=== PATIENT | female | born 1970 | race Caucasian/White ===

== ENCOUNTER 2017-01-07 08:45 | Outpatient (CLI) | payer OTHER ==
[~2017-01-07] VITALS: Ht 157.5 cm; Wt 103.4 kg
[~2017-01-07 08:45] MED LIST: ACET-2650 PO; GLUC1TAB60 PO; GLUC500C2; MELO15TA14 PO; MULT-35 PO
== END 2017-01-07 08:50 ==
LOC: PREOP 08:45
PROVIDERS: ATTEND Orthopaedic Surgery
DX: Z01.818 Encounter for other preprocedural examination (principal); M23.8X1 Other internal derangements of right knee

== ENCOUNTER 2017-01-12 07:30 | Day surgery (SDC) | payer OTHER ==
--- NOTE | 2017-01-04 13:42 | HISTORY AND PHYSICAL ---
DATE OF SERVICE: 01/12/2017 HISTORY OF PRESENT ILLNESS: The patient is a 46-year-old female with progressively worsening right knee pain, catching, locking and swelling. She has undergone treatment with injections, anti-inflammatories and activity modifications without relief of her symptoms. Due to functional impairment and failure to improve with conservative measures, the patient has elected to proceed with surgical intervention. REVIEW OF SYSTEMS: CONSTITUTIONAL: No chest pain, no shortness of breath, no dysuria. PAST MEDICAL HISTORY: Denies. PAST SURGICAL HISTORY: Left knee arthroscopy. SOCIAL HISTORY: The patient denies alcohol use. She drinks alcohol socially. FAMILY HISTORY: Significant for Alzheimer's ischemic heart disease, diabetes. PRIMARY CARE PROVIDER: Dr. Gibson MEDICATIONS: Mobic. ALLERGIES: No known drug allergies. PHYSICAL EXAMINATION: GENERAL: The patient is well developed, well nourished, no acute distress. HEENT: Normocephalic, atraumatic. Pupils were equal, round, reactive to light. Oropharynx is clear. NECK: Supple. No lymphadenopathy. LUNGS: Clear to auscultation bilaterally. HEART: Regular rate and rhythm. ABDOMEN: Soft, nontender, nondistended. EXTREMITIES: The right knee demonstrates a moderate effusion. She is tender along her medial femoral condyle and has pain medially with Von's. There is crepitus with knee range of motion. No varus valgus laxity, negative anterior and posterior drawer. Range of motion, 0/0/130. The patient ambulates with an antalgic gait. 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 PLAN: Right knee arthroscopy with partial medial meniscectomy and chondroplasty. The risks and benefits, options recovery have been discussed at length with the patient. She understands and wishes to proceed. Job ID: [id number] DocumentID: [id number] Dictated Date: 01/04/2017 13:02:15 Test Tech Date: 01/04/2017 13:42:05 Dictated By: RONNI PIZANO MD
--- NOTE | 2017-01-04 14:49 | HISTORY AND PHYSICAL ---
DATE OF SERVICE: This is for outpatient surgery on 01/12/17 for right knee arthroscopy. HISTORY OF PRESENT ILLNESS: The patient is a 46-year-old female with progressively worsening right knee pain, catching, locking and swelling. She has undergone treatment with injections, anti-inflammatories and at home exercise program without relief. She underwent injection which provided 2 weeks of good relief, but her symptoms recurred. She reports functional progressive impairment and due to this and failure to improve with conservative measures, the patient has elected to proceed with surgical intervention. REVIEW OF SYSTEMS: CONSTITUTIONAL: No chest pain, no shortness of breath, no dysuria. PAST MEDICAL HISTORY: Denies. PAST SURGICAL HISTORY: Left knee arthroscopy. SOCIAL HISTORY: The patient denies alcohol and tobacco use. FAMILY HISTORY: Significant for Alzheimer disease, diabetes, ischemic heart disease. PRIMARY CARE PROVIDER: Dr. Gibson MEDICATIONS: Mobic. ALLERGIES: No known drug allergies. PHYSICAL EXAMINATION: GENERAL: The patient is well developed, well nourished, no acute distress. HEENT: Normocephalic, atraumatic. Pupils were equal, round, reactive to light. Oropharynx is clear. NECK: Supple, no lymphadenopathy. LUNGS: Clear to auscultation bilaterally. HEART: Regular rate and rhythm. ABDOMEN: Soft, nontender, nondistended. EXTREMITIES: The right lower extremity demonstrates a moderate effusion. She has patellofemoral crepitus and pain with patella loading. She is tender along the medial femoral condyle and has pain medially with Von's. Range of motion, 0/0/130. She is ligamentously stable in all planes. IMPRESSION: Right knee medial meniscal tear with chondromalacia. PLAN: Right knee arthroscopy, chondroplasty and partial meniscectomy. The risks, benefits, options, ramifications and recovery have been discussed at length with the patient. She understands and wishes to proceed. Job ID: [id number] DocumentID: [id number] Dictated Date: 01/04/2017 13:07:56 [employer] Manufacturing Supervisor Date: 01/04/2017 13:23:54 Dictated By: RONNI PIZANO MD
[~2017-01-12] VITALS: Ht 157.5 cm; Wt 103.4 kg
[2017-01-12] MEDS ORDERED: ceFAZolin 1,000 MG (ANCEF) VIAL ONE (07:43)
[2017-01-12] MEDS ORDERED: NS (IVPB) 50 ML ONE (07:43)
[2017-01-12] MEDS ORDERED: LACTATED RINGERS 1,000 ML IV PRN (07:51)
[2017-01-12 07:57] VITALS: BP 150/92
[2017-01-12] MEDS ORDERED: ceFAZolin 1 GM/NS 50 ML IVPB IV ONE ×2 (08:00)
[2017-01-12] MEDS ORDERED: BUPIVACAINE 0.25% 30 ML (SENSORCAINE) VIAL ONE (08:00)
[2017-01-12] MEDS ORDERED: morphine PF (DURAMORPH) 10 MG/10 ML AMP ONE (08:00)
[2017-01-12] MEDS ORDERED: fentaNYL INJECTION 100 MCG/2 ML AMP ONE ×2 (08:07→09:38)
[2017-01-12] MEDS ORDERED: MIDAZOLAM 2 MG/2 ML (VERSED) VIAL ONE (08:07)
[2017-01-12] MEDS ORDERED: LIDOCAINE PF 2% 5 ML (XYLOCAINE) VIAL ONE (08:09)
[2017-01-12] MEDS ORDERED: LACTATED RINGERS 1,000 ML IV ONE (08:09)
[2017-01-12] MEDS ORDERED: ONDANSETRON 4 MG/2 ML (SDV) Z0FRAN ONE (08:09)
[2017-01-12] MEDS ORDERED: proPOfol 200 MG/20 ML (DIPRIVAN) VIAL IV ONE (08:09)
--- NOTE | 2017-01-12 09:18 | Progress Note-Pre Operative ---
Pre-Operative Progress Note H&P Reviewed The H&P was reviewed, patient examined and no changes noted. Date Seen by Provider: Jan 12, 2017 Time Seen by Provider: 09:10 Date H&P Reviewed: Jan 12, 2017 Time H&P Reviewed: 09:09 Pre-Operative Diagnosis: right knee medial meniscal tear and chondromalacia RONNI PIZANO MD Jan 12, 2017 09:18
--- NOTE | 2017-01-12 09:20 | Progress Note-Post Operative ---
Post-Operative Progess Note Surgeon (s)/Sprinkling System Irrigator (s) Surgeon RONNI PIZANO MD Sprinkling System Irrigator: John Hedrick Pre-Operative Diagnosis right knee medial meniscal tear and chondromalacia Post-Operative Diagnosis right knee medial meniscal tear and chondromalcia of the medial femoral condyle, medial tibial plateau and patella Procedure & Operative Findings Date of Procedure 01/12/17 Procedure Performed/Findings right knee arthroscopic partial medial meniscectomy and chondroplasty of the medial femoral condyle, medial tibial plateau and patella Anesthesia Type GETA Estimated Blood Loss Estimated blood loss (mL): minimal Specimens/Packing Specimens Removed none Packing: none RONNI PIZANO MD Jan 12, 2017 09:20
[2017-01-12] MEDS ORDERED: HYDROcodone/APAP 7.5 MG/325 MG (LORTAB, LORCET PLUS) TABLET PO PRN (09:30)
[2017-01-12] MEDS ORDERED: SEVOFLURANE (ULTANE) 15 ML INHAL SOLN ONE (09:43)
[2017-01-12] MEDS ORDERED: KETOROLAC 30 MG/ML VIAL IVP ONE (10:15)
[2017-01-12] MEDS ORDERED: ONDANSETRON 4 MG/2 ML (SDV) Z0FRAN IVP PRN (10:15)
[2017-01-12] MEDS ORDERED: HYDROmorphone (DILAUDID) 2 MG/ML VIAL IVP PRN (10:15)
[2017-01-12] MEDS ORDERED: morphine INJ 10 MG/ML 1ML (SYR OR VIAL) IVP PRN (10:15)
[2017-01-12] MEDS ORDERED: HYDR-3816 PO (10:59)
[2017-01-12 11:00] VITALS: BP 115/66
[2017-01-12 11:30] VITALS: BP 112/79
--- NOTE | 2017-01-12 11:40 | Anesthesia-General Post-Op ---
General Patient Condition Mental Status/LOC: Same as Preop Cardiovascular: Satisfactory Nausea/Vomiting: Absent Respiratory: Satisfactory Pain: Controlled Complications: Absent Post Op Complications Complications None Follow Up Care/Instructions Patient Instructions None needed. Anesthesia/Patient Condition Patient Condition Patient is doing well, no complaints, stable vital signs, no apparent adverse anesthesia problems. No complications reported per nursing. D/C home per [facility] [place] Criteria: JANKI Canseco DO Jan 12, 2017 11:40
--- NOTE | 2017-01-12 11:40 | OPERATIVE REPORT ---
DATE OF SERVICE: 01/12/2017 PREOPERATIVE DIAGNOSES: 1. Right knee medial meniscal tear. 2. Right knee chondromalacia of the medial femoral condyle. POSTOPERATIVE DIAGNOSES: 1. Right knee medial meniscal tear. 2. Right knee chondromalacia of the medial femoral condyle. 3. Right knee chondromalacia of the medial tibial plateau. 4. Right knee chondromalacia of the patella. PROCEDURES: 1. Right knee arthroscopic partial medial meniscectomy. 2. Right knee arthroscopic chondroplasty of the medial femoral condyle. 3. Right knee arthroscopic chondroplasty of the medial tibial plateau. 4. Right knee arthroscopic chondroplasty of the patella. SURGEON: Wilfrido Henry MD VENETIAN BLIND TAPE CUTTER: EVA Clemons, who assisted throughout the procedure and closed the incisions. ANESTHESIA: General endotracheal by Jason Stevenson CRNA. TOURNIQUET TIME: Not applicable. ESTIMATED BLOOD LOSS: Minimal. DRAINS: None. COMPLICATIONS: None. POSTOPERATIVE PLAN: Routine arthroscopic protocol. The patient was transported to the recovery room awake and in stable condition. STATEMENT OF MEDICAL NECESSITY: The patient is a 46-year-old female with progressively worsening right knee pain, catching, locking and swelling. She was tender along her medial joint line. An MRI revealed a posterior horn medial meniscal tear as well as chondromalacia of the medial femoral condyle. She had undergone treatment with injections, rest and activity modifications without relief and due to functional impairment and failure to improve with conservative measures, the patient elected to proceed with surgical intervention. Examination under anesthesia revealed range of motion of 0/0/135 with a trace Flynn, trace anterior drawer and negative pivot shift. No varus or valgus laxity. ARTHROSCOPIC FINDINGS: The patella demonstrated grade II chondral flap superiorly in an 8 x 8 area. The medial and lateral gutters were clear. The trochlea demonstrated no gross chondral abnormalities. The lateral compartment demonstrated no meniscal or chondral pathology. The medial compartment demonstrated a radial tear of the posterior horn of the medial meniscus involving approximately 20% of the posterior horn. There was grade III chondral flap of the central portion of the femoral condyle in a 20 x 15 area. There was grade II chondral flap in a 10 x 10 area over the central portion of the tibial plateau. PROCEDURE IN DETAIL: After risks and benefits of the procedure were discussed and questions were answered, informed consent was signed and placed in the chart. The operative site was confirmed in the preoperative holding area and initialed by the surgeon. The patient was then transported to the operating room and after adequate levels of general endotracheal anesthesia were obtained, a timeout was called, confirming the operative site. Examination under anesthesia was performed with the above findings noted. The right lower extremity was prepped and draped in the usual sterile fashion. The knee joint was injected with 60 mL of fluid and a standard inferolateral port was placed for the arthroscope and inflow cannula. Under direct visualization, an inferior medial port was created and the menisci and cruciates carefully probed with the above findings noted. The unstable chondral flaps of the patella were debrided with a shaver back to stable edges. The scope was redirected into the medial compartment, where the unstable posterior horn medial meniscal tear was debrided with a biter and shaver, removing approximately 20% of the posterior horn. This was carefully probed with no further tearing or instability noted. The unstable chondral flaps of the medial femoral condyle and medial tibial plateau were debrided with a shaver back to stable edges. No grade IV changes were noted. The ACL was carefully probed and found to be intact. The knee was copiously irrigated. Port sites were closed with 3-0 nylon in subcuticular fashion. The knee was injected with Duramorph. The port sites were infiltrated with plain Marcaine. A soft dressing was applied and the patient was transferred to the recovery room awake and in stable condition. Job ID: [id number] DocumentID: [id number] Dictated Date: 01/12/2017 09:59:30 Division Order Analyst Date: 01/12/2017 11:39:44 Dictated By: WILFRIDO HENRY MD
[2017-01-12 12:00] VITALS: BP 128/76
[2017-01-12 13:20] VITALS: BP 128/76
--- NOTE | 2017-01-12 14:01 | Physical Therapy Ortho Eval ---
PT Orthopedic Evaluation Type of Surgery Knee Scope right side Prior Level of Function Current Living Status: Spouse Locomotion (Upon Admit): Independent Established Durable Medical Eq: None Subjective Subjective Patient in bed pre tx, agrees to PT, has 4/10 pain in right knee Entry Into Home: Stairs Without Railing Steps Into Home: 2 Objective Objective right knee flexion 60 degrees, extension +5 degrees Motor Control Motor Control: Motor Control WNL ROM ROM: WFL, except focal deficit Strength NT Transfer Transfers (B, C, W/C) (FIM): 4 Gait Gait Assistive Device: Crutches Weight Bearing Restriction: Weight Bearing/Tolerated Location Restriction: R LE Gait (FIM): 2 Distance: 60' Gait Level of Assist: 4 Summary/Comments Patient was able to ambulate 60' using axillary crutches with CGA, and go up and down 1 step using crutches with CGA Treatment Rendered Treatment: Therapeutic Exercises, Gait Train, Step Train Exercise Instruction: Quad Sets, Heel Slides, Ankle Pumps Assessment/Goals Goal Time Frame: 1 Visit Plan Treatment Plan: Discharge PT/Family Agrees to Plan: Yes Time Time In: 1140 Time Out: 1155 Total Billed Treatment Time: 15 Billed Treatment Time 1 visit EVL 15' Yes PT/OT Therapy GCodes Therapy Functional Limitation: Physical Therapy Test(s)/Tool used to determine: Level of Assistance Scale Functional Limitation-Current Charge Code: MOBCUR Modifier: CI Functional Limitation-Goal Charge Code: MOBGOAL Modifier: CI Functional Limitation-D/C Charge Codes: MOBDC Modifier: CI JEAN CARLOS LUI PT Jan 12, 2017 14:01
== END 2017-01-12 13:20 | disposition home or self-care (01) ==
LOC: SDC 07:30
PROVIDERS: ATTEND Orthopaedic Surgery
DX: M23.8X1 Other internal derangements of right knee (principal); M22.41 Chondromalacia patellae, right knee; E66.01 Morbid (severe) obesity due to excess calories; Z68.41 Body mass index [BMI] 40.0-44.9, adult
CPT/HCPCS: 84703; 87081

== ENCOUNTER 2017-03-24 08:04 | Outpatient (RCR) | payer OTHER ==
[~2017-03-24 08:04] MED LIST changes: +HYDR-3816 PO
== END 2017-04-26 11:46 | disposition home or self-care (01) ==
PROVIDERS: ATTEND Orthopaedic Surgery
DX: M23.231 Derangement of other medial meniscus due to old tear or injury, right knee (principal)

== ENCOUNTER → 2017-05-19 | Outpatient (CLI) | payer OTHER ==
--- NOTE | 2017-05-20 09:05 | Diagnostic Imaging Report ---
Bilateral screening mammogram 2D views with tomosynthesis The current study was also evaluated with a Computer Aided Detection (CAD) system. Indication: Screening. No current complaints stated on the questionnaire. COMPARISON: 05/20/16 FINDINGS: The breasts are composed of heterogeneously dense parenchyma which may decrease mammographic sensitivity. There is no mass, architectural distortion or suspicious cluster of calcification. Allowing for technique and positional differences, no suspicious change is seen. IMPRESSION: Dense breasts with no definite change. ACR BI-RADS Category 2: Benign findings. Result letter will be mailed to the patient. Note: At least 10% of breast cancer is not imaged by mammography. Dictated by: Dictated on workstation # [id number]
== END ==
LOC: RAD 07:21
PROVIDERS: ATTEND Nurse Practitioner Family
DX: Z12.31 Encounter for screening mammogram for malignant neoplasm of breast (principal)
CPT/HCPCS: 77067

== ENCOUNTER → 2018-01-13 | Outpatient (CLI) | payer OTHER ==
[~2018-01-13] MED LIST changes: +HYDR-34 PO; -HYDR-3816 PO
[2018-01-13 09:56] LABS: BASOPHILS # (AUTO) 0.1 10^3/uL (0.0-0.1); BASOPHILS % (AUTO) 1 % (0-10); EOSINOPHILS # (AUTO) 0.2 10^3/uL (0.0-0.3); EOSINOPHILS % (AUTO) 2 % (0-10); HEMATOCRIT 42 % (35-52); HEMOGLOBIN 13.8 G/DL (11.5-16.0); LYMPHOCYTES # (AUTO) 1.6 X 10^3 (1.0-4.0); LYMPHOCYTES % (AUTO) 18 % (12-44); MEAN CORPUSCULAR HEMOGLOBIN 30 PG (25-34); MEAN CORPUSCULAR HGB CONC 33 G/DL (32-36); MEAN CORPUSCULAR VOLUME 91 FL (80-99); MEAN PLATELET VOLUME 9.7 FL (7.4-10.4); MONOCYTES # (AUTO) 0.5 X 10^3 (0.0-1.0); MONOCYTES % (AUTO) 6 % (0-12); NEUTROPHILS # (AUTO) 6.7 X 10^3 (1.8-7.8); NEUTROPHILS % (AUTO) 74 % (42-75); PLATELET COUNT 327 10^3/uL (130-400); RED BLOOD COUNT 4.63 10^6/uL (4.35-5.85); RED CELL DISTRIBUTION WIDTH 13.7 % (10.0-14.5); WHITE BLOOD COUNT 9.1 10^3/uL (4.3-11.0)
[2018-01-13 10:14] LABS: ALANINE AMINOTRANSFERASE 12 U/L (0-55); ALBUMIN 4.4 GM/DL (3.2-4.5); ALKALINE PHOSPHATASE 49 U/L (40-136); BILIRUBIN,TOTAL 0.5 MG/DL (0.1-1.0); BUN/CREATININE RATIO 22; CALCIUM 9.3 MG/DL (8.5-10.1); CARBON DIOXIDE 23 MMOL/L (21-32); CHLORIDE 106 MMOL/L (98-107); CHOLESTEROL 173 MG/DL (< 200); CREATININE SERUM 0.67 MG/DL (0.60-1.30); GFR ESTIMATED > 60; GLUCOSE 100 MG/DL (70-105); HDL CHOLESTEROL 64 MG/DL (40-60); SODIUM 137 MMOL/L (135-145); TOTAL PROTEIN 7.1 GM/DL (6.4-8.2); TRIGLYCERIDES 60 MG/DL (<150); VLDL CHOLESTEROL 12 MG/DL (5-40)
== END ==
LOC: LAB 09:40
PROVIDERS: ATTEND Nurse Practitioner Family
DX: Z00.00 Encounter for general adult medical examination without abnormal findings (principal); R03.0 Elevated blood-pressure reading, without diagnosis of hypertension
CPT/HCPCS: 36415; 80053; 80061; 84443; 85025

== ENCOUNTER → 2018-05-26 | Outpatient (CLI) | payer OTHER ==
--- NOTE | 2018-05-26 09:40 | Diagnostic Imaging Report ---
Indication: Routine screening. Comparison is made with prior mammogram from 05/19/2017 and 05/20/2016. 2-D and 3-D bilateral screening mammography was performed with CAD. Both breasts are heterogeneously dense, limiting the sensitivity of mammography. The parenchymal pattern is stable. Fibronodular parenchymal pattern is similar to prior study. No spiculated mass or malignant-appearing microcalcifications are seen. The axillae are unremarkable. Impression: BI-RADS category 2 No mammographic features suspicious for malignancy are identified. ACR BI-RADS Category 2: Benign findings. Result letter will be mailed to the patient. Note: At least 10% of breast cancer is not imaged by mammography. Dictated by: Dictated on workstation # [id number]
== END ==
LOC: RAD 06:43
PROVIDERS: ATTEND Nurse Practitioner Family
DX: Z12.31 Encounter for screening mammogram for malignant neoplasm of breast (principal)
CPT/HCPCS: 77067

== ENCOUNTER 2018-08-08 22:57 | Emergency (ER) | payer OTHER ==
[~2018-08-08] VITALS: Ht 157.5 cm; Wt 83.9 kg
[2018-08-08] MEDS ORDERED: LACTATED RINGERS 1,000 ML IV ONE (23:24)
[2018-08-08] MEDS ORDERED: PROCHLORPERAZINE 10 MG/2ML INJ (COMPAZINE) IV ONE (23:30)
[2018-08-08] MEDS ORDERED: HYOSCYAMINE 0.125 MG (LEVSIN) TAB SL ONE (23:30)
[2018-08-09 00:19] LABS: BASOPHILS % (AUTO) 0 % (0-10); EOSINOPHILS % (AUTO) 0 % (0-10); HEMATOCRIT 44 % (35-52); HEMOGLOBIN 14.3 G/DL (11.5-16.0); LYMPHOCYTES # (AUTO) 0.3 X 10^3 (1.0-4.0); LYMPHOCYTES % (AUTO) 3 % (12-44); MEAN CORPUSCULAR HEMOGLOBIN 29 PG (25-34); MEAN CORPUSCULAR HGB CONC 32 G/DL (32-36); MEAN CORPUSCULAR VOLUME 90 FL (80-99); MEAN PLATELET VOLUME 9.4 FL (7.4-10.4); MONOCYTES # (AUTO) 0.5 X 10^3 (0.0-1.0); MONOCYTES % (AUTO) 5 % (0-12); NEUTROPHILS # (AUTO) 9.2 X 10^3 (1.8-7.8); NEUTROPHILS % (AUTO) 92 % (42-75); PLATELET COUNT 270 10^3/uL (130-400); RED CELL DISTRIBUTION WIDTH 13.6 % (10.0-14.5)
[2018-08-09 00:36] LABS: ALANINE AMINOTRANSFERASE 21 U/L (0-55); ALBUMIN 4.4 GM/DL (3.2-4.5); ALKALINE PHOSPHATASE 58 U/L (40-136); AMYLASE 23 U/L (25-125); BILIRUBIN,TOTAL 0.7 MG/DL (0.1-1.0); BUN/CREATININE RATIO 25; CARBON DIOXIDE 20 MMOL/L (21-32); CHLORIDE 105 MMOL/L (98-107); CREATININE SERUM 0.71 MG/DL (0.60-1.30); GFR ESTIMATED > 60; GLUCOSE 115 MG/DL (70-105); LIPASE 24 U/L (8-78); SODIUM 136 MMOL/L (135-145); TOTAL PROTEIN 7.4 GM/DL (6.4-8.2)
[2018-08-09 00:44] LABS: BAND NEUTROPHILS 7 %; BASOPHILS % (MANUAL) 0 %; EOSINOPHILS % (MANUAL) 1 %; LYMPHOCYTES % (MANUAL) 6 %; MONOCYTES % (MANUAL) 6 %; NEUTROPHILS % (MANUAL) 80 %
[2018-08-09 00:45] LABS: RBC MORPH NORMAL
[2018-08-09 01:00] LABS: BILIRUBIN,URINE NEGATIVE (NEGATIVE); CLARITY,URINE CLEAR; COLOR,URINE YELLOW; GLUCOSE, URINE (UA) NEGATIVE (NEGATIVE); KETONES,URINE 2+ (NEGATIVE); LEUKOCYTE ESTERASE ,URINE NEGATIVE (NEGATIVE); NITRITE,URINE NEGATIVE (NEGATIVE); PH,URINE 6 (5-9); PROTEIN,URINE 1+ (NEGATIVE); UROBILINOGEN,URINE NORMAL (NORMAL)
[2018-08-09 01:09] LABS: BACTERIA,URINE TRACE /HPF; RBC,URINE RARE /HPF; WBC,URINE RARE /HPF
[2018-08-09] MEDS ORDERED: LACTATED RINGERS 1,000 ML IV ONE (01:18)
[2018-08-09] MEDS ORDERED: PROCHLORPERAZINE 10 MG/2ML INJ (COMPAZINE) IV ONE (01:45)
[2018-08-09] MEDS ORDERED: PROC-1 PO (03:08)
[2018-08-09] MEDS ORDERED: PROC25SU27 RC (03:08)
--- NOTE | 2018-08-09 03:09 | ED GI ---
General Chief Complaint: Abdominal/GI Problems Stated Complaint: N/V Sepsis Screen: No Definite Risk Source of Information: Patient Exam Limitations: No Limitations History of Present Illness Date Seen by Provider: Aug 08, 2018 Time Seen by Provider: 23:20 Initial Comments PT ARRIVES VIA POV FROM HOME C/O NAUSEA AND VOMITING SINCE THIS AM HAS VOMITED MULTIPLE HAS MID ABDOMINAL DISCOMFORT AND CRAMPING NO DIARRHEA HAS BEEN URINATING SMALL AMOUNTS EACH TIME SHE VOMITS NO KNOWN FEVER PT HAS TAKEN ZOFRAN WITHOUT RELIEF. 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 PCP: DR. WALLACE Allergies and Home Medications Allergies Coded Allergies: blue dye (Unverified Allergy, Unknown, 01/07/17) Home Medications Acetaminophen 650 Mg Tablet.er, 650 MG PO PRN, (Reported) Wlitaohv-Jcvccio-Ihbl 149-Hyal 1 Each Tablet, 6 EACH PO DAILY 1700, (Reported) Hydrocodone Bit/Acetaminophen 1 Each Tablet, 1-2 EACH PO PRN Prescribed by: HYUN CHRISTIANSON on 01/12/17 1059 Meloxicam 15 Mg Tablet, 15 MG PO DAILY, (Reported) Multivitamin 1 Each Tablet, 1 EACH PO DAILY, (Reported) Prochlorperazine Maleate 10 Mg Tablet, 10 MG PO Q6H PRN for NAUSEA/VOMITING Prescribed by: IMELDA AGUIRRE on 08/09/18307 Prochlorperazine Maleate 25 Mg Supp.rect, 25 MG RC Q6H PRN for NAUSEA/VOMITING Prescribed by: IMELDA AGUIRRE on 08/09/18307 Patient Home Medication List Home Medication List Reviewed: Yes Review of Systems Review of Systems Constitutional: No fever; malaise, weakness Respiratory: No Symptoms Reported Cardiovascular: No Symptoms Reported Gastrointestinal: See HPI, Abdominal Pain; Denies Diarrhea; Nausea, Poor Appetite, Poor Fluid Intake, Vomiting Genitourinary: No Symptoms Reported Musculoskeletal: no symptoms reported Skin: no symptoms reported Psychiatric/Neurological: No Symptoms Reported Endocrine: No Symptoms Reported Past Hhmutlm-Suiyxt-Mqzjyi Hx Patient Social History Alcohol Use: Denies Use Recreational Drug Use: No Smoking Status: Never a Smoker Recent Foreign Travel: No Contact w/Someone Who Travel: No Recent Infectious Disease Expo: Yes Recent Hopitalizations: No Physical Abuse: No Sexual Abuse: No Immunizations Up To Date Date of Influenza Vaccine: May 10, 2016 Seasonal Allergies Seasonal Allergies: No Past Medical History Surgeries: Yes (LEFT KNEE SCOPE) Orthopedic Respiratory: No Cardiac: No Neurological: No Reproductive Disorders: No Female Reproductive Disorders: Denies Sexually Transmitted Disease: No HIV/AIDS: No Genitourinary: No Gastrointestinal: No Musculoskeletal: Yes (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 0.0oz. 83.366926vn; 41.7 BMI Method:Stated General Appearance: WD/WN, no apparent distress, other (LOOKS MILDY ILL) Respiratory: normal breath sounds, no respiratory distress, no accessory muscle use Cardiovascular: regular rate, rhythm, no murmur Gastrointestinal: soft, no organomegaly, abnormal bowel sounds (HYPERACTIVE); No distended, No guarding, No rebound; tenderness (MILD MID ABDOMINAL AND EPIGASTRIC TENDERNESS. ) Extremities: normal inspection, no pedal edema, normal capillary refill Back: no CVA tenderness Neurologic/Psychiatric: analytics intern II-XII nml as tested, no motor/sensory deficits, alert, normal mood/affect, oriented x 3 Skin: warm/dry, pallor Progress/Results/Core Measures Results/Orders Lab Results Laboratory Tests Test 08/09/18 00:05 08/09/18 00:50 Range/Units White Blood Count 10.0 4.3-11.0 10^3/uL Red Blood Count 4.90 4.35-5.85 10^6/uL Hemoglobin 14.3 11.5-16.0 G/DL Hematocrit 44 35-52 % Mean Corpuscular Volume 90 80-99 FL Mean Corpuscular Hemoglobin 29 25-34 PG Mean Corpuscular Hemoglobin Concent 32 32-36 G/DL Red Cell Distribution Width 13.6 10.0-14.5 % Platelet Count 270 130-400 10^3/uL Mean Platelet Volume 9.4 7.4-10.4 FL Neutrophils (%) (Auto) 92 H 42-75 % Lymphocytes (%) (Auto) 3 L 12-44 % Monocytes (%) (Auto) 5 0-12 % Eosinophils (%) (Auto) 0 0-10 % Basophils (%) (Auto) 0 0-10 % Neutrophils # (Auto) 9.2 H 1.8-7.8 X 10^3 Lymphocytes # (Auto) 0.3 L 1.0-4.0 X 10^3 Monocytes # (Auto) 0.5 0.0-1.0 X 10^3 Eosinophils # (Auto) 0.0 0.0-0.3 10^3/uL Basophils # (Auto) 0.0 0.0-0.1 10^3/uL Neutrophils % (Manual) 80 % Lymphocytes % (Manual) 6 % Monocytes % (Manual) 6 % Eosinophils % (Manual) 1 % Basophils % (Manual) 0 % Band Neutrophils 7 % Blood Morphology Comment NORMAL Sodium Level 136 135-145 MMOL/L Potassium Level 4.0 3.6-5.0 MMOL/L Chloride Level 105 98-107 MMOL/L Carbon Dioxide Level 20 L 21-32 MMOL/L Anion Gap 11 5-14 MMOL/L Blood Urea Nitrogen 18 7-18 MG/DL Creatinine 0.71 0.60-1.30 MG/DL Estimat Glomerular Filtration Rate > 60 BUN/Creatinine Ratio 25 Glucose Level 115 H 70-105 MG/DL Calcium Level 9.0 8.5-10.1 MG/DL Corrected Calcium 8.7 8.5-10.1 MG/DL Total Bilirubin 0.7 0.1-1.0 MG/DL Aspartate Amino Transf (AST/SGOT) 22 5-34 U/L Alanine Aminotransferase (ALT/SGPT) 21 0-55 U/L Alkaline Phosphatase 58 40-136 U/L Total Protein 7.4 6.4-8.2 GM/DL Albumin 4.4 3.2-4.5 GM/DL Amylase Level 23 L 25-125 U/L Lipase 24 8-78 U/L Serum Test, Qualitative NEGATIVE NEGATIVE Urine Color YELLOW Urine Clarity CLEAR Urine pH 6 5-9 Urine Specific [place] 1.020 1.016-1.022 Urine Protein 1+ H NEGATIVE Urine Glucose (UA) NEGATIVE NEGATIVE Urine Ketones 2+ H NEGATIVE Urine Nitrite NEGATIVE NEGATIVE Urine Bilirubin NEGATIVE NEGATIVE Urine Urobilinogen NORMAL NORMAL MG/DL Urine Leukocyte Esterase NEGATIVE NEGATIVE Urine RBC (Auto) 1+ H NEGATIVE Urine RBC RARE /HPF Urine WBC RARE /HPF Urine Squamous Epithelial Cells 5-10 /HPF Urine Crystals NONE /LPF Urine Bacteria TRACE /HPF Urine Casts NONE /LPF Urine Mucus SMALL H /LPF Urine Culture Indicated NO My Orders Orders - ELISA AGUIRREA K DO Saline Lock/Iv-Start (08/08/18 23:24) Amylase (08/08/18 23:24) Cbc With Automated Diff (08/08/18 23:24) Comprehensive Metabolic Panel (08/08/18 23:24) Hcg,Qualitative Serum (08/08/18 23:24) Lipase (08/08/18 23:24) Ua Culture If Indicated (08/08/18 23:24) Saline Lock/Iv-Start (08/08/18 23:24) Lactated Ringers (Lr 1000 Ml Iv Solution (08/08/18 23:24) Hyoscyamine Sl Tablet (Levsin Sl Tablet) (08/08/18 23:30) Prochlorperazine Injection (Compazine In (08/08/18 23:30) Manual Differential (08/09/18 00:05) Saline Lock/Iv-Start (08/09/18 01:18) Lactated Ringers (Lr 1000 Ml Iv Solution (08/09/18 01:18) Prochlorperazine Injection (Compazine In (08/09/18 01:45) Iv Push Security Orderly Ed (08/08/18 ) Medications Given in ED Vital Signs/I&O 08/08/18 08/09/18 23:15 03:20 Temp 97.5 97.5 Pulse 82 82 Resp 18 18 B/P (MAP) 123/61 (81) 123/61 (81) Pulse Ox 98 98 Blood Pressure Mean: 81 Progress Progress Note : Progress Note NO VOMITING DURING ER STAY NAUSEA IS IMPROVED WITH COMPAZINE PT TOLERATING ICE CHIPS AND CLEAR LIQUIDS PRIOR TO DISMISSAL ABDOMINAL DISCOMFORT IS BETTER AT DISMISSAL Departure Impression Primary Impression: Gastroenteritis Disposition: 01 HOME, SELF-CARE Condition: Improved Departure-Patient Inst. Referrals: JERMAIN WALLACE MD (PCP/Family) Primary Care Physician Patient Instructions: Viral Gastroenteritis, Adult (DC) Add. Discharge Instructions: CLEAR LIQUIDS--WATER, BROTH, JELLO, GATORADE, POPSICLES TOMORROW IF YOU ARE BETTER, ADD BRATS DIET TO CLEAR LIQUIDS--BANANAS, RICE, APPLESAUCE, TOAST, SALTINES ACIDOPHILUS 2 PILLS 4 TIMES A DAY UNTIL YOU ARE WELL FOLLOW UP WITH DR. WALLACE IN 1-2 DAYS IF NO BETTER, RETURN TO ER IF WORSE All discharge instructions reviewed with patient and/or family. Voiced understanding. Scripts Prochlorperazine Maleate (Compazine) 25 Mg Supp.rect 25 MG RC Q6H PRN for NAUSEA/VOMITING, #10 SUPP.RECT Prov: IMELDA AGUIRRE DO 08/09/18 Prochlorperazine Maleate (Compazine) 10 Mg Tablet 10 MG PO Q6H PRN for NAUSEA/VOMITING, #10 TAB Prov: IMELDA AGUIRRE DO 08/09/18 IMELDA AGUIRRE DO Aug 09, 2018 03:09
[2018-08-09 03:20] VITALS: BP 123/61
== END 2018-08-09 03:20 | disposition home or self-care (01) ==
LOC: EDUNIT# 22:57 → ER 22:58
DX: K52.9 Noninfective gastroenteritis and colitis, unspecified (principal); Z91.041 Radiographic dye allergy status
CPT/HCPCS: 36415; 80053; 81000; 82150; 83690; 84703; 85007; 85027; 96374; 96376

== ENCOUNTER 2019-04-17 07:40 | Outpatient (CLI) | payer OTHER ==
[~2019-04-17] VITALS: Ht 160 cm; Wt 100.7 kg
[~2019-04-17 07:40] MED LIST changes: +PROC-1 PO; +PROC25SU27 RC
[2019-04-17 07:51] VITALS: BP 141/99
[2019-04-17 08:38] LABS: BASOPHILS % (AUTO) 0 % (0-10); EOSINOPHILS # (AUTO) 0.1 10^3/uL (0.0-0.3); EOSINOPHILS % (AUTO) 1 % (0-10); HEMATOCRIT 42 % (35-52); HEMOGLOBIN 13.5 G/DL (11.5-16.0); LYMPHOCYTES # (AUTO) 2.3 X 10^3 (1.0-4.0); LYMPHOCYTES % (AUTO) 23 % (12-44); MEAN CORPUSCULAR HEMOGLOBIN 29 PG (25-34); MEAN CORPUSCULAR HGB CONC 33 G/DL (32-36); MEAN CORPUSCULAR VOLUME 90 FL (80-99); MEAN PLATELET VOLUME 9.4 FL (7.4-10.4); MONOCYTES # (AUTO) 0.7 X 10^3 (0.0-1.0); MONOCYTES % (AUTO) 7 % (0-12); NEUTROPHILS # (AUTO) 7.1 X 10^3 (1.8-7.8); NEUTROPHILS % (AUTO) 70 % (42-75); PLATELET COUNT 318 10^3/uL (130-400); WHITE BLOOD COUNT 10.1 10^3/uL (4.3-11.0)
[2019-04-17 08:39] LABS: BILIRUBIN,URINE NEGATIVE (NEGATIVE); CLARITY,URINE CLEAR; COLOR,URINE YELLOW; GLUCOSE, URINE (UA) NEGATIVE (NEGATIVE); KETONES,URINE 3+ (NEGATIVE); LEUKOCYTE ESTERASE ,URINE NEGATIVE (NEGATIVE); NITRITE,URINE NEGATIVE (NEGATIVE); PH,URINE 8 (5-9); PROTEIN,URINE NEGATIVE (NEGATIVE); UROBILINOGEN,URINE NORMAL (NORMAL)
[2019-04-17] MEDS ORDERED: ASPI-586 PO (08:48)
[2019-04-17] MEDS ORDERED: GLUC-153 PO (08:48)
[2019-04-17] MEDS ORDERED: MULT-618 PO (08:48)
--- NOTE | 2019-04-17 08:55 | Diagnostic Imaging Report ---
INDICATION: Preop for knee replacement. PA and lateral chest obtained at 8:32 a.m. FINDINGS: Heart and mediastinal silhouette are normal in appearance. The lungs are clear. There is no pneumothorax or pleural fluid. IMPRESSION: Negative chest. Dictated by: Dictated on workstation # [id number]
[2019-04-17 09:01] LABS: BACTERIA,URINE TRACE /HPF; SQUAMOUS EPITHELIAL CELL,UR 0-2 /HPF; WBC,URINE RARE /HPF
[2019-04-17 09:21] LABS: ALANINE AMINOTRANSFERASE 13 U/L (0-55); ALBUMIN 4.5 GM/DL (3.2-4.5); ALKALINE PHOSPHATASE 60 U/L (40-136); BILIRUBIN,TOTAL 0.4 MG/DL (0.1-1.0); BUN/CREATININE RATIO 18; CALCIUM 9.6 MG/DL (8.5-10.1); CARBON DIOXIDE 24 MMOL/L (21-32); CHLORIDE 104 MMOL/L (98-107); CREATININE SERUM 0.68 MG/DL (0.60-1.30); GFR ESTIMATED > 60; GLUCOSE 84 MG/DL (70-105); POTASSIUM 3.5 MMOL/L (3.6-5.0); SODIUM 139 MMOL/L (135-145); TOTAL PROTEIN 7.4 GM/DL (6.4-8.2)
[2019-04-17 09:30] LABS: INR 0.9 (0.8-1.4); PROTHROMBIN TIME PATIENT 12.4 SEC (12.2-14.7)
[2019-04-17 09:35] LABS: ERYTHROCYTE SEDIMENTATION RATE 12 MM/HR (0-30)
== END 2019-04-17 08:30 | disposition home or self-care (01) ==
LOC: PREOP 07:40
PROVIDERS: ATTEND Orthopaedic Surgery
DX: Z01.812 Encounter for preprocedural laboratory examination (principal); Z01.810 Encounter for preprocedural cardiovascular examination; Z01.811 Encounter for preprocedural respiratory examination; M17.12 Unilateral primary osteoarthritis, left knee; R53.83 Other fatigue
CPT/HCPCS: 36415; 71046; 80053; 81000; 85025; 85610; 85652; 86850; 86900; 86901; 87081; 93005

== ENCOUNTER 2019-04-25 06:00 | Inpatient (IN) | payer OTHER ==
--- NOTE | 2019-04-13 10:07 | HISTORY AND PHYSICAL ---
DATE OF SERVICE: ADMISSION HISTORY AND PHYSICAL DATE OF ADMISSION: 04/25/2019. Inpatient admission on 04/25/2019 for a left total knee arthroplasty. The patient will require regular inpatient admission due to gait abnormalities, pain management and comorbidities. HISTORY OF PRESENT ILLNESS: The patient is a 48-year-old female with a longstanding progressive left knee pain. Radiographs reveal severe tricompartmental osteoarthritis. She has undergone extensive conservative management including injections, multiple arthroscopies, anti-inflammatories and activity modification, but reports continued progressive pain. It has reached to a point where she is having difficulty with her activities of daily living and because of this, it was elected to proceed with surgical intervention. REVIEW OF SYSTEMS: No chest pain, no shortness of breath and no dysuria. PAST MEDICAL HISTORY: Unremarkable. PAST SURGICAL HISTORY: Bilateral knee arthroscopies. SOCIAL HISTORY: The patient denies tobacco use. Drinks alcohol socially. FAMILY HISTORY: Significant for cancer, ischemic heart disease and Alzheimer's. PRIMARY CARE PROVIDER: Dr. Gibson. MEDICATIONS: Meloxicam, aspirin and multivitamins. ALLERGIES: No known drug allergies. PHYSICAL EXAMINATION: GENERAL: The patient is well developed, well-nourished, in no acute distress. HEENT: Normocephalic and atraumatic. Pupils are equal, round and reactive to light. Oropharynx is clear. NECK: Supple, no lymphadenopathy. LUNGS: Clear to auscultation bilaterally. HEART: Regular rate and rhythm. ABDOMEN: Soft, nontender and nondistended. EXTREMITIES: The left knee demonstrates varus alignment. She has a slight effusion noted. There is no erythema or warmth. She has pain along the medial joint line pain medially with Von. She has marked patellofemoral crepitus. Range of motion is 0/2/130. She is ligamentously stable in all planes. IMPRESSION: Severe left knee osteoarthritis, unresponsive to conservative management. PLAN: Left total knee arthroplasty. The risks, benefits, options, ramifications and recovery were discussed at length with the patient. She understands and wishes to proceed. Job ID: [id number] DocumentID: [id number] Dictated Date: 04/13/2019 09:47:05 Route Sales Manager Date: 04/13/2019 10:06:15 Dictated By: RONNI PIZANO MD
[2019-04-25] VITALS (13 sets, daily range): BP systolic 104–153; BP diastolic 58–89
[~2019-04-25] VITALS: Ht 157.5 cm; Wt 100.7 kg
[~2019-04-25 06:00] MED LIST changes: +ASPI-586 PO; +GLUC-153 PO; +MULT-618 PO
[2019-04-25] MEDS: LACTATED RINGERS 1,000 ML IV PRN ×2 (06:30→07:48)
[2019-04-25] MEDS ORDERED: BUPIVACAINE 0.5% 30 ML (SENSORCAINE) VIAL ONE (06:37)
[2019-04-25] MEDS ORDERED: CEFUROXIME 1.5 GM (ZINACEF) VIAL ONE (06:37)
[2019-04-25] MEDS ORDERED: MIDAZOLAM 2 MG/2 ML (VERSED) VIAL ONE (06:37)
[2019-04-25] MEDS ORDERED: CEFUROXIME INJECTION 1,500 MG in WATER (STERILE) FOR INJECTION 15 ML IV ONE (06:45)
[2019-04-25] MEDS ORDERED: LIDOCAINE PF 2% 5 ML (XYLOCAINE) VIAL ONE ×2 (06:51)
[2019-04-25] MEDS ORDERED: fentaNYL INJECTION 100 MCG/2 ML AMP ONE (06:56)
[2019-04-25] MEDS ORDERED: ONDANSETRON 4 MG/2 ML (SDV) Z0FRAN ONE (06:59)
[2019-04-25] MEDS ORDERED: proPOfol 200 MG/20 ML (DIPRIVAN) VIAL IV ONE (06:59)
[2019-04-25] MEDS ORDERED: DEXAMETHASONE 10 MG/ML (DECADRON) 1 ML VIAL ONE (06:59)
[2019-04-25] MEDS ORDERED: SEVOFLURANE (ULTANE) 15 ML INHAL SOLN ONE ×6 (06:59→08:48)
[2019-04-25] MEDS ORDERED: TRANEXAMIC ACID 100 MG/ML 10 ML INJECTION IV ONE (06:59)
[2019-04-25] MEDS ORDERED: morphine PCA 100 MG/100 ML BAG IV PRN (07:30)
[2019-04-25] MEDS ORDERED: diphenhydrAMINE 50 MG/ML INJ (BENADRYL) IVP PRN (07:30)
[2019-04-25] MEDS ORDERED: ONDANSETRON 4 MG/2 ML (SDV) Z0FRAN IVP PRN ×2 (07:30→09:15)
[2019-04-25] MEDS ORDERED: ACETAMINOPHEN 325 MG TABLET PO PRN (07:30)
--- NOTE | 2019-04-25 07:30 | Progress Note-Pre Operative ---
Pre-Operative Progress Note H&P Reviewed The H&P was reviewed, patient examined and no changes noted. Date Seen by Provider: Apr 25, 2019 Time Seen by Provider: 07:22 Date H&P Reviewed: Apr 25, 2019 Time H&P Reviewed: 07:11 Pre-Operative Diagnosis: left knee primary osteoarthritis RONNI PIZANO MD Apr 25, 2019 07:30
--- NOTE | 2019-04-25 07:31 | Progress Note-Post Operative ---
Post-Operative Progess Note Surgeon (s)/Floral Department Specialist (s) Surgeon RONNI PIZANO MD Floral Department Specialist: John Hedrick Pre-Operative Diagnosis left knee primary osteoarthritis Post-Operative Diagnosis left knee primary osteoarthritis Procedure & Operative Findings Date of Procedure 04/25/19 Procedure Performed/Findings left total knee arthroplasty Anesthesia Type GETA Estimated Blood Loss Estimated blood loss (mL): minimal Specimens/Packing Specimens Removed none Packing: none RONNI PIZANO MD Apr 25, 2019 07:31
[2019-04-25] MEDS ORDERED: OXYC1TAB87 PO (07:32)
--- NOTE | 2019-04-25 07:35 | D/C HH Face to Face Order ---
D/C Face to Face Orders Reconcile Patient Problems Problems Reviewed?: Yes Instructions for Patient Via [facility] [employer], Patient Instructions/FollowUp: three weeks Physician to follow Patient: three weeks Discharge Diet for Home: Regular Diet Patient Data-Allergies,Ht & Wt Patient Allergies: Coded Allergies: blue dye (Unverified Allergy, Unknown, 01/07/17) erythromycin base (Verified Allergy, Unknown, 04/17/19) Height (Feet): 5 Height (Inches): 2.00 Weight (Pounds): 185 Weight (Ounces): 0.0 Home Health Need/Face to Face Date of Face to Face: Apr 25, 2019 Clinical Findings: Instability, Muscle weakness, Pain with ambulation, Unsteady gait I have seen Pt [id number]: Yes Discharged To: Home Diagnosis/Conditions: left total knee arthroplasty Patient is Homebound due to: Jaquan fall risk due to instabilty, Muscle weakness, Pain w/ambulation Homebound Status Due to the above stated illness, injury or surgical procedure (medical condition or diagnosis) and associated clinical findings, the patient is homebound because of his/her inability to leave home except with aid of a supportive device and/or person AND leaving the home requires a considerable and taxing effort or is medically contraindicated. Pt req the following assistanc: Walker Home Health Nursing Orders Home Health Services Order: Physical Therapy-Evaluate & Treat DC left knee celestino and apply steri strips 05/09/19 Home Health Infusion Therapy Line Start Date: Apr 25, 2019 Therapy Orders Therapy Orders: Physical Therapy, PT to assess for OT Therapy Specific Orders: Eval assistive deivces, Teach enviro modifications/safety, Gait training, Increase strength/endurance, Provider maintenance therapy, Restore ROM Certify Stmt I certify that this patient is under my care and that I, a nurse practitioner or a physician; a assistant professor of marine biology working with me, had a face to face encounter that - meets the physician face to face encounter requirements with this patient as dated. RONNI PIZANO MD Apr 25, 2019 07:34
[2019-04-25] MEDS ORDERED: HYDROmorphone 2 MG/ML VIAL (DILAUDID) ONE (07:56)
[2019-04-25] MEDS ORDERED: INTRA-ARTICULAR IU ONE ×5 (08:00)
[2019-04-25] MEDS ORDERED: KETAMINE/NaCl 50 MG/5 ML SYRINGE ONE (08:05)
[2019-04-25] MEDS ORDERED: KETOROLAC 30 MG/ML VIAL ONE (08:59)
[2019-04-25] MEDS: SENNA W/DOCUSATE (SENOKOT S) TABLET PO SCH ×2 (09:00→22:30)
[2019-04-25] MEDS ORDERED: HYDROmorphone 2 MG/ML VIAL (DILAUDID) IV ONE (09:15)
--- NOTE | 2019-04-25 09:37 | Progress Note ---
Standard Progress Note Progress Notes/Assess & Plan Date Seen by a Provider: Apr 25, 2019 Time Seen by a Provider: 09:35 Progress/Assessment & Plan post op check no complaints radiographs--HW well positioned no fracture LLE--2 plus DP and PT pulses with brisk cap refill. intact DF and PF of toes and ankle s/p LTKA mobilize as able RONNI PIZANO MD Apr 25, 2019 09:37
--- NOTE | 2019-04-25 10:26 | Diagnostic Imaging Report ---
INDICATION: Postoperative. TECHNIQUE: 2 post operative radiographs of the left knee 9:29 AM CORRELATION STUDY: None FINDINGS: There are postsurgical changes of a total knee arthroplasty. Alignment is anatomic. Installed hardware appearing unremarkable. Resurfacing posterior patella. Overlying soft tissue gas collections and skin celestino are present. IMPRESSION: Postsurgical changes of a total knee replacement. Dictated by: Dictated on workstation # [id number]
[2019-04-25] MEDS: NS IV 1000 ML 1,000 ML IV SCH (12:10)
[2019-04-25] MEDS: PROCHLORPERAZINE 10 MG/2ML INJ (COMPAZINE) IV PRN ×2 (13:19→20:17)
--- NOTE | 2019-04-25 13:35 | NUR ---
Initial visit: provided active listening and compassionate presence for pt, her , daughter and son in law. The pt said she feels she has gotten through the easy part, and anticipates needing to work hard through her healing process. I encouraged positive attitude and positive coping demonstrated.
--- NOTE | 2019-04-25 14:12 | Physical Therapy Evaluation ---
PT Evaluation-General Medical Diagnosis Admission Date Apr 25, 2019 at 06:00 Medical Diagnosis: left TKA Onset Date: Apr 25, 2019 Therapy Diagnosis Therapy Diagnosis: impaired mobility, strength, endurance, ROM Height/Weight Height (Feet): 5 Height (Inches): 2.00 Weight (Pounds): 185 Weight (Ounces): 0.0 Precautions Precautions/Isolations: Standard Precautions Weight Bear Status Left Lower Extremity: Left Weight Bearing/Tolerated Referral Physician: John Hedrick Reason for Referral: Evaluation/Treatment Medical History Current History bilateral knee arthroscopies Reviewed History: Yes Social History Home: Single Level Current Living Status: Spouse Entry Into Home: Stairs Without Railing PT Steps Into Home: 2 Prior/Core FIM Prior Level of Function Therapy Code Descriptions/Definitions Functional [place] Measure: 0=Not Assessed/NA 4=Minimal Assistance 1=Total Assistance 5=Supervision or Setup 2=Maximal Assistance 6=Modified [place] 3=Moderate Assistance 7=Complete [place] Therapy Quality Codes: 6 Independent with activity with or without an assistive device 5 Patient requires set up or clean up by helper. Patient completes activity by themselves 4 Supervision or touching assist (CGA). [place] provide cues , steadying assist 3 The helper provides less than half the effort to complete the activity 2 The helper provides more than half the effort to complete the activity 1 Dependent. The helper does all the effort to complete an activity 7 Patient refused to complete or attempt activity 9 The patient did not perform the activity before the current illness or injury 88 Not attempted due to Medical conditions or safety concerns Functional Abilities and Goals: Independent: Patient completed the activities by him/herself, with or without an assistive device, with no assistance from a helper. Needed Some Help: Patient needed partial assistance from another person to complete activities. Dependent: A helper completed the activities for the patient. Unknown: Not Applicable: Bed Mobility: 7 Transfers (B,C,W/C) (FIM): 7 Gait: 7 Stairs: 7 Indoor Mobility (Ambulation): Independent Stairs: Independent PT Evaluation-Current Subjective Patient in bed pre tx, agrees to PT, has 3/10 pain in left knee Pt/Family Goals Patient in bed post tx with nurse call, phone, tray, all needs met, family in the room. Objective Patient Orientation: Person, Place, Situation Attachments: SCD's, Polar Pack, IV ROM/Strength ROM Lower Extremities left knee extension +7 degrees, flexion 70 degrees Strength Lower Extremities NT Sensory Vision: Wears Glasses Hearing: Functional Sensation Right Lower Extremit: Intact Sensation Left Lower Extremity: Intact Transfers Therapy Code Descriptions/Definitions Functional [place] Measure: 0=Not Assessed/NA 4=Minimal Assistance 1=Total Assistance 5=Supervision or Setup 2=Maximal Assistance 6=Modified [place] 3=Moderate Assistance 7=Complete [place] Transfers (B, C, W/C) (FIM): 4 Scootin Rollin Supine to/from Sit: 4 Sit to/from Stand: 4 Patient needs min assist with left leg during supine <-> sit, CGA for sit <-> stand. Gait Mode of Locomotion: Walk Anticipated Mode of Locomotion: Walk Gait (FIM): 1 Distance: 3' Gait Level of Assist: 4 Gait Persons Needed: 1 Gait Assistive Device: FWW Comments/Gait Description Patient is able to bear weight on left leg but she gets nauseated with standing. She is able to take a few side steps toward the head of the bed before sitting down. Balance Sitting Static: Normal Sitting Dynamic: Normal Standing Static: Good Standing Dynamic: Good Treatment LLE total knee protocol x10 (AP, HS, QS, SLR, SAQ). CPM donned and fit to leg and set to 60/-2. Patient in bed post tx with polar care on and SCD's. Assessment/Needs Patient has impaired mobility, strength, endurance, ROM. Patient got nauseated and was only able to ambulate a few steps. Rehab Potential: Fair PT Short Term Goals Short Term Goals Time Frame: May 02, 2019 Transfers (B,C,W/C) (FIM): 5 Gait (FIM): 5 Gait Distance Comment: 150' Gait Level of Assist: 5 Gait Assistive Device: FWW PT Plan Problem List Problem List: Activity Tolerance, Functional Strength, Safety, Balance, Gait, Transfer, Bed Mobility, ROM Treatment/Plan Treatment Plan: Continue Plan of Care Treatment Plan: Bed Mobility, Education, Functional Activity Jordi, Functional Strength, Group Therapy, Gait, Safety, Therapeutic Exercise, Transfers Treatment Duration: May 02, 2019 Frequency: 11 times per week Estimated Hrs Per Day: .25 hour per day Patient and/or Family Agrees t: Yes Safety Risks/Education Patient Education: Gait Training, Transfer Techniques, Reviewed Use of Ice, Correct Positioning, Safety Issues Teaching Recipient: Patient Teaching Methods: Demonstration, Discussion Response to Teaching: Reinforcement Needed Discharge Recommendations Plan Patient will perform bed mobility and transfer training, balance and endurance training, functional strengthening, stair training, gait training, and education, to improve functional mobility and independence at home. Therapy Discharge Recommendati: Other, See Comments Time/GCodes Time In: 1335 Time Out: 1401 Total Billed Treatment Time: 34 Total Billed Treatment 1 visit EVL 20' FA 14' JEAN CARLOS LUI PT Apr 25, 2019 14:12
[2019-04-25] MEDS: CEFUROXIME INJECTION 750 MG in WATER (STERILE) FOR INJECTION 10 ML IV SCH (16:04)
--- NOTE | 2019-04-25 16:15 | OPERATIVE REPORT ---
DATE OF SERVICE: 04/25/2019 PREOPERATIVE DIAGNOSIS: Left knee primary osteoarthritis. POSTOPERATIVE DIAGNOSIS: Left knee primary osteoarthritis. PROCEDURE: Left total knee arthroplasty. SURGEON: Wilfrido Pizano MD. ACADEMIC SPECIALIST: John Hedrick, who assisted throughout the procedure and closed the incisions. ANESTHESIA: General endotracheal by Jonny Larkin CRNA. TOURNIQUET TIME: Approximately 65 minutes at 300 mmHg. ESTIMATED BLOOD LOSS: Minimal. DRAINS: None. COMPLICATIONS: None. POSTOPERATIVE PLAN: Routine protocol. MATERIALS: Microport cemented size 3 femur, cemented size 3 tibia with a 12 mm insert and a cemented size 29 patella. STATEMENT OF MEDICAL NECESSITY: The patient is a 48-year-old female with longstanding progressive left knee pain. Radiographs revealed severe medial and patellofemoral arthrosis. She had undergone treatment with multiple arthroscopies as well as injections, anti-inflammatories and rest without relief. Due to functional impairment and failure to improve with conservative measures, the patient elected to proceed with surgical intervention. DESCRIPTION OF PROCEDURE: After risks and benefits of procedure were discussed and questions were answered, an informed consent was signed and placed on the chart. The operative site was confirmed in the preoperative holding area initialed by the surgeon. The patient was then transferred to the operating room and after adequate levels of general endotracheal anesthetic were obtained, a timeout was called confirming the operative site. The left lower extremity was prepped and draped in the usual sterile fashion with the leg elevated and the knee flexed. Tourniquet was inflated to 300 mmHg. Standard anterior approach was utilized. Hemostasis was obtained with cautery. The medial parapatellar arthrotomy was performed leaving 1 cm cuff on the patella for later reattachment. A portion of the fat pad was resected. A subperiosteal release was performed in the proximal medial tibia being careful to stay on the bony surface. The ACL was resected. The intramedullary guide was passed into the femur and the distal cutting block was placed. A distal cut was made. The femur was sized to a size 3. The 3 cutting block was placed parallel to the epicondylar axis and cuts were made from posterior to anterior. Subperiosteal release was then carefully performed on the posterior distal femur, being careful to stay on the bony surface. Intramedullary guide was then passed into the tibia. The cutting block was placed. The drop murray transected the intermalleolar axis and the cut was made. The 3 baseplate was placed and pinned into position. The drop murray transected the intermalleolar axis and this was prepared with a drill and keel punch. The femoral trial was placed and the trochlear cut was made. The patella was then prepared by resecting 10 mm off the undersurface. The peg guide was placed and peg holes were drilled. The 29 trial was placed. Full extension was easily obtained, 120 degrees of flexion with gravity was easily obtained. There was no anterior/posterior or medial/lateral laxity in flexion or extension. The trials were removed. The joint was irrigated with pulse lavage. Periarticular block was placed in the posterior capsule, medial and lateral retinaculum and extensor mechanism as well as the subcutaneous tissues. The bone ends were irrigated and dried. The tibial base was cemented into position. Excessive cement was removed. The superior surface was irrigated and dried and the polyethylene insert was placed. Distal femur was irrigated and dried and the femoral prosthesis was cemented into position. Excessive cement was removed. The knee was brought out into full extension until the cement had cured. The undersurface of patella was irrigated and dried. The patellar button was cemented into position. Excessive cement was removed. Once the cement had cured, the knee was taken through a range of motion. Full extension was easily obtained with 120 degrees of flexion with gravity was easily obtained. The patella tracked well. There was no anterior/posterior or medial/lateral laxity in flexion or extension. The arthrotomy was closed with #2 [place] in [id number] interrupted fashion. The knee was flexed. No undue tension was noted at the repair site. The patella tracked well. The subcutaneous tissues were irrigated with pulse lavage. A 0 Vicryl was used to deep subcutaneous tissue, 2-0 Vicryl for the superficial subcutaneous tissue, celestino were used on the skin. A soft dressing was applied. The tourniquet was deflated. The patient was transferred to the recovery room awake and in stable condition. Job ID: [id number] DocumentID: [id number] Dictated Date: 04/25/2019 09:18:56 Optical Worker Date: 04/25/2019 16:14:53 Dictated By: WILFRIDO PIZANO MD
[2019-04-26] VITALS: BP 112/56
[2019-04-26] MEDS: CEFUROXIME INJECTION 750 MG in WATER (STERILE) FOR INJECTION 10 ML IV SCH (00:21)
[2019-04-26] MEDS: NS IV 1000 ML 1,000 ML IV SCH ×2 (00:22→08:38)
[2019-04-26 04:00] VITALS: BP 100/65
[2019-04-26 06:42] LABS: HEMOGLOBIN 11.9 G/DL (11.5-16.0)
[2019-04-26] MEDS: MULTIVIT W/MINERALS TAB (THERAGRAN M) PO SCH (06:50)
--- NOTE | 2019-04-26 07:47 | Anesthesia-General Post-Op ---
General Patient Condition Mental Status/LOC: Same as Preop Cardiovascular: Satisfactory Nausea/Vomiting: Absent Respiratory: Satisfactory Pain: Controlled Complications: Absent Post Op Complications Complications None Follow Up Care/Instructions Patient Instructions None needed. Anesthesia/Patient Condition Patient Condition Patient is doing well, no complaints, stable vital signs, no apparent adverse anesthesia problems. No complications reported per nursing. SELENA DOMINGO CRNA Apr 26, 2019 07:47
[2019-04-26 08:00] VITALS: BP 129/60
--- NOTE | 2019-04-26 08:02 | Progress Note ---
Standard Progress Note Progress Notes/Assess & Plan Date Seen by a Provider: Apr 26, 2019 Time Seen by a Provider: 08:01 Progress/Assessment & Plan post op check no complaints radiographs--HW well positioned no fracture LLE--2 plus DP and PT pulses with brisk cap refill. intact DF and PF of toes and ankle s/p LTKA mobilize as able Final Diagnosis nausea resolved Vital Signs Date Time Temp Pulse Resp B/P (MAP) Pulse Ox O2 Delivery O2 Flow Rate FiO2 04/26/19 04:00 36.9 85 20 100/65 (77) 98 Room Air 04/26/19 00:00 37.0 91 16 112/56 (74) 96 Room Air 04/25/19 21:00 92 Nasal Cannula 3.00 04/25/19 20:00 37.0 99 16 123/58 (79) 94 Room Air 04/25/19 16:00 36.4 94 20 125/64 (84) 92 Room Air 04/25/19 13:20 36.8 18 04/25/19 12:00 36.8 97 18 104/67 (79) 94 Room Air 04/25/19 10:45 Room Air 04/25/19 10:45 92 Nasal Cannula 3.00 04/25/19 10:30 36.2 16 129/89 (102) 94 Room Air 04/25/19 10:25 OxyMask 3 04/25/19 10:20 16 126/69 (88) 100 OxyMask 3 04/25/19 10:10 OxyMask 10 04/25/19 10:10 16 116/66 (83) 99 OxyMask 3 04/25/19 10:00 16 131/71 (91) 100 OxyMask 3 04/25/19 09:55 10 04/25/19 09:50 16 129/75 (93) 100 OxyMask 10 04/25/19 09:40 OxyMask 10 04/25/19 09:40 16 137/70 (92) 99 OxyMask 10 04/25/19 09:30 16 141/81 (101) 98 OxyMask 10 04/25/19 09:25 OxyMask 10 04/25/19 09:20 16 136/71 (92) 98 OxyMask 10 04/25/19 09:11 OxyMask 10 04/25/19 09:11 36.1 20 111/60 (77) 96 OxyMask 10 I & O 04/26/19 07:00 Intake Total 3120 ml Output Total 1250 ml Balance 1870 ml Laboratory Tests Test 04/26/19 05:36 Range/Units Hemoglobin 11.9 11.5-16.0 G/DL Hematocrit 38 35-52 % LLE--dressing intact. NVI distally. no calf tenderness s/p LTKA doing well PT/OT RONNI PIZANO MD Apr 26, 2019 08:02
[2019-04-26] MEDS: ENOXAPARIN 40 MG/0.4 ML (LOVENOX) SYR SC SCH ×2 (08:04→20:00)
[2019-04-26] MEDS: oxyCODONE/APAP 5/325MG (PERCOCET 5) TABLET PO PRN ×7 (08:04→22:16)
[2019-04-26] MEDS: SENNA W/DOCUSATE (SENOKOT S) TABLET PO SCH ×2 (08:04→20:00)
[2019-04-26] MEDS: ASPIRIN E.C. 81 MG (ECOTRIN) TAB PO SCH (08:04)
--- NOTE | 2019-04-26 08:47 | Consultation ---
History of Present Illness History of Present Illness Patient Consulted On(rigoberto/time) 04/26/19 08:47 Date Seen by Provider: Apr 26, 2019 Time Seen by Provider: 08:40 Reason for Visit: LEFT KNEE REPLACEMENT History of Present Illness PT REPORTS THAT SHE IS FEELING QUITE A BIT OF PAIN TODAY. SHE STATES THAT SHE HAS NOT HAD ABDOMINAL PAIN, BUT HAS BEEN A LITTLE CONSTIPATED WELL. SHE STATES THAT SHE DID GET UP AND WENT TO THE RESTROOM, BUT HAS NOT HAD ANY BOWEL MOVEMENT, BUT HAS HAD GAS OUTPUT. SHE DENIES CHEST PAIN, SHORTNESS OF BREATH, NAUSEA. Allergies and Home Medications Allergies Coded Allergies: blue dye (Unverified Allergy, Unknown, 01/07/17) erythromycin base (Verified Allergy, Unknown, 04/17/19) Home Medications Aspirin 81 Mg Tablet.dr, 81 MG PO DAILY@1800, (Reported) Epcbnclc-Utuewor-Awfm 149-Hyal 1 Each Tablet, 2 EACH PO DAILY@1800, (Reported) Meloxicam 15 Mg Tablet, 15 MG PO DAILY@1800, (Reported) Multivitamin 1 Each Tablet, 1 EACH PO DAILY@1800, (Reported) Oxycodone HCl/Acetaminophen 1 Each Tablet, 1 TAB PO Q4H Prescribed by: RONNI PIZANO on 04/25/19 0732 Patient Home Medication List Home Medication List Reviewed: Yes Past Ycnsuxy-Loersj-Eawtyw Hx Past Med/Social Hx: Reviewed Nursing Past Med/Soc Hx, Reviewed and Corrections made Patient Social History Alcohol Use: Denies Use Recreational Drug Use: No Smoking Status: Never a Smoker 2nd Hand Smoke Exposure: No Recent Foreign Travel: No Contact w/Someone Who Travel: No Recent Infectious Disease Expo: No Recent Hopitalizations: No Physical Abuse: No Sexual Abuse: No Mistreated: No Fear: No Immunizations Up To Date Date of Influenza Vaccine: May 10, 2016 Seasonal Allergies Seasonal Allergies: No Past Medical History Surgeries: Yes (bilat knee scope) Orthopedic Respiratory: No Cardiac: No Neurological: No Reproductive Disorders: No Female Reproductive Disorders: Denies Sexually Transmitted Disease: No HIV/AIDS: No Genitourinary: No Gastrointestinal: No Musculoskeletal: Yes (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; CHRONIC LEFT KNEE PAIN--S/P LEFT KNEE SCOPE) Arthritis Endocrine: No HEENT: No Loss of Vision: Bilateral Hearing Impairment: Denies Cancer: No Psychosocial: No Integumentary: No Blood Disorders: No Adverse Reaction/Blood Tranf: No (N/A) Family Medical History Reviewed Nursing Family Hx Alzheimer's disease 19 MOTHER Cardiovascular disease 19 FATHER Dementia 19 MOTHER Diabetes mellitus 19 FATHER G8 BROTHER FH: breast cancer 19 MOTHER Hypertension 19 FATHER 19 MOTHER G8 BROTHER TIAs 19 MOTHER Thyroid disease 19 MOTHER Review of Systems Review of Systems General: No Chills, No Fatigue HEENT: No Head Aches, No Dysphasia Pulmonary: No Dyspnea, No Cough Cardiovascular: No: Chest Pain, Palpitations Gastrointestinal: Other (NO BOWEL MOVEMENT TODAY); No: Nausea, Abdominal Pain, Diarrhea Genitourinary: No Dysuria, No Frequency, No Incontinence Musculoskeletal: leg pain (LEFT KNEE) Neurological: No: Weakness, Confusion All Other Systems Reviewed All Other Systems Reviewed: Yes (Negative excepted noted.) Physical Exam Vital Signs Vital Signs - First Documented 04/25/19 06:30 Temp 37.3 Pulse 110 Resp 18 B/P (MAP) 153/83 Pulse Ox 98 O2 Delivery Room Air Capillary Refill : Less Than 3 Seconds Height, Weight, BMI Height: 5'2.00" Weight: 185lbs. 0.0oz. [id number]; 40.59 BMI Method:Stated General Appearance: No Apparent Distress, WD/WN Eyes: Bilateral Eye Normal Inspection, Bilateral Eye PERRL, Bilateral Eye EOMI HEENT: PERRL/EOMI Neck: Full Range of Motion, Non Tender, Supple Respiratory: Chest Non Tender, Lungs Clear, Normal Breath Sounds, No Accessory Muscle Use Cardiovascular: Regular Rate, Rhythm, No Edema, No Gallop, Normal Peripheral Pulses Gastrointestinal: Normal Bowel Sounds, Non Tender, Soft Rectal: Deferred Back: Normal Inspection Extremity: Normal Capillary Refill, No Calf Tenderness, No Pedal Edema, Other (LEFT KNEE WITH DRESSING IN PLACE, COLD PACK IN PLACE) Neurologic/Psychiatric: Alert, Oriented x3, Normal Mood/Affect, wired sweatband cutter II-XII Norm as Tested Skin: Warm/Dry Lymphatic: No Adenopathy Assessment/Plan Assessment/Plan Admission Dx LEFT KNEE OSTEOARTHRITIS STATUS POST LEFT KNEE REPLACEMENT LEFT KNEE PAIN CONSTIPATION LEFT KNEE OSTEOARTHRITIS AND SHE IS POST-OP LEFT KNEE REPLACEMENT DAY #1 WITH LEFT KNEE PAIN - IV PAIN MEDICATION THROUGH TRAVEL PROFESSIONAL - PT TO CONTINUE WITH ORAL MEDICATIONS AND I HAVE ADVISED HER THAT SHE IS TO LET THE STAFF KNOW IF HER PAIN IS NOT CONTROLLED SO THAT SHE CAN BETTER PARTICIPATE IN PHYSICAL THERAPY. CONSTIPATION - PRN COLACE, SENNA Admission Status: Inpatient Order (span 2 midnights) Reason for Inpatient Admission: LEFT KNEE REPLACEMENT Clinical Quality Measures DVT/VTE Risk/Contraindication: Risk Factor Score Per Nursin RFS Level Per Nursing on Admit: 4+=Very High JERMAIN WALLACE MD Apr 26, 2019 08:47
--- NOTE | 2019-04-26 09:11 | Occupational Therapy Eval ---
OT Evaluation-General/PLF Medical Diagnosis Admission Date Apr 25, 2019 at 06:00 Medical Diagnosis: left TKA Onset Date: Apr 25, 2019 Therapy Diagnosis Therapy Diagnosis: impaired ADLs and mobility Height/Weight Height (Feet): 5 Height (Inches): 2.00 Weight (Pounds): 185 Weight (Ounces): 0.0 Precautions Precautions/Isolations: Fall Prevention, Standard Precautions Safety Interventions: Move Closer to Desk, Reorient-PRN Referral Physician: John Hedrick Referral Reason: Activity Tolerance, Self Care, Evaluation/Treatment, Strengthening/ROM Medical History Current History s/p L TKA on 04/25/19 Reviewed History: Yes Social History Home: Single Level Current Living Status: Spouse Entry Into Home: Stairs Without Railing Steps Into Home: 3 ADL-Prior Level of Function Therapy Code Descriptions/Definitions Functional [place] Measure: 0=Not Assessed/NA 4=Minimal Assistance 1=Total Assistance 5=Supervision or Setup 2=Maximal Assistance 6=Modified [place] 3=Moderate Assistance 7=Complete [place] Therapy Quality Codes: 6 Independent with activity with or without an assistive device 5 Patient requires set up or clean up by helper. Patient completes activity by themselves 4 Supervision or touching assist (CGA). [place] provide cues , steadying assist 3 The helper provides less than half the effort to complete the activity 2 The helper provides more than half the effort to complete the activity 1 Dependent. The helper does all the effort to complete an activity 7 Patient refused to complete or attempt activity 9 The patient did not perform the activity before the current illness or injury 88 Not attempted due to Medical conditions or safety concerns Functional Abilities and Goals: Independent: Patient completed the activities by him/herself, with or without an assistive device, with no assistance from a helper. Needed Some Help: Patient needed partial assistance from another person to complete activities. Dependent: A helper completed the activities for the patient. Unknown: Not Applicable: ADL PLOF Comments Pt reports she was independent with all ADLs prior to hospitalization, she denies using AE/AD Self Care: Independent Functional Cognition: Independent DME/Equipment: Grab Bars, Shower, Tall Toilet, Tub/Shower DME/Equipment Comments pt did not use DME prior to hospitalization. Pt states she has both a walk in shower and a tub shower, she does not have a shower/bath chair, and she has a tall toilet with grab bars installed. Occupation: works at [employer] Self: Yes OT Current Status Subjective Pt laying in bed at start of session, agreeable to OT eval and tx. Pt rated her pain in her LLE as 5.5 to 6/10. Mental Status/Objective Patient Orientation: Person, Place, Time, Situation Attachments: IV, Polar Pack, SCD's, Other-See Comments (CPM) Current Glasses/Contacts: Yes Hearing Aids: No Dentures/Partials: No Hand Dominance: Right Upper Extremity ROM WNL Upper Extremity Coordination WNL finger to nose test and thumb opposition to each finger. Upper Extremity Sensation WNL to light touch BUE Upper Extremity Strength 4+/5 MMT BUE ADL-Treatment Therapy Code Descriptions/Definitions Functional [place] Measure: 0=Not Assessed/NA 4=Minimal Assistance 1=Total Assistance 5=Supervision or Setup 2=Maximal Assistance 6=Modified [place] 3=Moderate Assistance 7=Complete [place] Therapy Quality Codes: 6 Independent with activity with or without an assistive device 5 Patient requires set up or clean up by helper. Patient completes activity by themselves 4 Supervision or touching assist (CGA). [place] provide cues , steadying assist 3 The helper provides less than half the effort to complete the activity 2 The helper provides more than half the effort to complete the activity 1 Dependent. The helper does all the effort to complete an activity 7 Patient refused to complete or attempt activity 9 The patient did not perform the activity before the current illness or injury 88 Not attempted due to Medical conditions or safety concerns Grooming (FIM): 4 (CGA standing at sink. OT set up grooming supplies at sink for pt. Pt completed the following: brushing hair, brushing teeth, washing hands) Toileting (FIM): 4 (CGA during stand for hygiene, pt completed 3/3) Transfers (B, C, W/C) (FIM): 4 (CGA sit to/from stand, mod I sit to/from supine (pt able to manage LLE into/out of bed). ) Toilet/Commode Transfer (FIM): 4 (CGA sit to/from stand to toilet.) Other Treatments Pt laying in bed at start of session, provided information for OT evaluation. Pt agreed to walking to the bathroom to complete toileting and grooming. Pt performed functional mobility with FWW to toilet as OT managed IV pole and IV lines. Pt completed toileting, then went to sink to complete grooming activities. Pt performed functional mobility with FWW returning to the bed as OT managed IV pole/lines. Post OT session, pt laying in bed with family present, call light in reach, SCDs BLE, CPM on LLE, and polar pack on LLE. Pt reported all needs met Education OT Patient Education: Correct positioning, Energy conservation, Modified ADL techniques, Progress toward Goal/Update tx plan, Purpose of tx/functional activities, Transfer techniques Teaching Recipient: Patient Teaching Methods: Demonstration Response to Teaching: Verbalize Understanding OT Short Term Goals Short Term Goals Time Frame: May 09, 2019 Bathing(FIM): 4 Lower Body Dressing(FIM): 4 Toileting(FIM): 5 Transfers (B,C,W/C) (FIM): 5 Toilet/Commode Transfer(FIM): 5 1=Demonstrate adherence to instructed precautions during ADL tasks. 2=Patient will verbalize/demonstrate understanding of assistive devices/modifications for ADL. 3=Patient will improve strength/tolerance for activity to enable patient to perform ADL's. OT Medical Administrative Assistant Goals Skilled Nursing Goals Time Frame: May 18, 2019 Eating (FIM): 7 Grooming(FIM): 6 Bathing(FIM): 6 Upper Body Dressing(FIM): 7 Lower Body Dressing(FIM): 6 Toileting(FIM): 6 Transfers (B,C,W/C) (FIM): 6 Toilet/Commode Transfer(FIM): 6 Additional Goals: 1-Demonstrate ADL Tasks, 2-Verbalize Understanding, 3- ImproveStrength/Jordi 1=Demonstrate adherence to instructed precautions during ADL tasks. 2=Patient will verbalize/demonstrate understanding of assistive devices/modifications for ADL. 3=Patient will improve strength/tolerance for activity to enable patient to perform ADL's. OT Education/Plan Problem List/Assessment Assessment: Decreased Activ Tolerance, Decreased UE Strength, Impaired Funct Balance, Impaired I ADL's, Impaired Self-Care Skills Pt would benefit from skilled OT intervention in order to increase independence in ADLs, functional mobility, and functional activities for return home. Discharge Recommendations Plan/Recommendations: Continue POC Therapy Discharge Recommendati: Post Acute OT Treatment Plan/Plan of Care Treatment,Training & Education: Yes Patient would benefit from OT for education, treatment and training to promote independence in ADL's, mobility, safety and/or upper extremity function for ADL's. Plan of Care: ADL Retraining, Caregiver Training, Functional Mobility, UE Funct Exercise/Act Frequency: 5 times per week Estimated Hrs Per Day: .25 hour per day Agreement: Yes Rehab Potential: Good Time/GCodes Start Time: 08:33 Stop Time: 09:02 Total Time Billed (hr/min): 29 Billed Treatment Time 1, EVL [id number], ADL [id number] SANDER HOLLINGSWORTH OT Apr 26, 2019 09:11
--- NOTE | 2019-04-26 09:49 | Physical Therapy Daily Note ---
PT Daily Note-Current Subjective Patient agrees to PT. Currently on CPM 0-70 degrees with polar pack in place Pain Numeric Pain Scale: 5-Moderate Pain Location: Left Location Body Site: Knee Pain Description: Acute Mental Status Patient Orientation: Normal For Age Attachments: IV Transfers Therapy Code Descriptions/Definitions Functional [place] Measure: 0=Not Assessed/NA 4=Minimal Assistance 1=Total Assistance 5=Supervision or Setup 2=Maximal Assistance 6=Modified [place] 3=Moderate Assistance 7=Complete [place] Therapy Quality Codes: 6 Independent with activity with or without an assistive device 5 Patient requires set up or clean up by helper. Patient completes activity by themselves 4 Supervision or touching assist (CGA). [place] provide cues , steadying assist 3 The helper provides less than half the effort to complete the activity 2 The helper provides more than half the effort to complete the activity 1 Dependent. The helper does all the effort to complete an activity 7 Patient refused to complete or attempt activity 9 The patient did not perform the activity before the current illness or injury 88 Not attempted due to Medical conditions or safety concerns Transfers (B, C, W/C) (FIM): 6 Scootin Rollin Supine to/from Sit: 6 Sit to/from Stand: 6 Weight Bearing Left Lower Extremity: Left Weight Bearing/Tolerated Gait Training Gait (FIM): 6 Distance (FIM): 3=150 ft Distance: 225' Gait Level of Assist: 6 Gait Assistive Device: FWW slow, antalgic, reciprocal pattern Exercises Supine Ex: Ankle pumps, Quad Set, Heel Slides, Straight leg raise Supine Reps: 15 Seated Therapy Exercises: Long arc quads Seated Reps: 15 Assessment Patient progressing with treatment plan. Plan dismissal in a.m. PT Short Term Goals Short Term Goals Time Frame: May 02, 2019 Transfers (B,C,W/C) (FIM): 5 Gait (FIM): 5 Gait Distance Comment: 150' Gait Level of Assist: 5 Gait Assistive Device: FWW PT Plan Treatment/Plan Treatment Plan: Continue Plan of Care Treatment Plan: Bed Mobility, Education, Functional Activity Jordi, Functional Strength, Group Therapy, Gait, Safety, Therapeutic Exercise, Transfers Treatment Duration: May 02, 2019 Frequency: 11 times per week Estimated Hrs Per Day: .25 hour per day Patient and/or Family Agrees t: Yes Time/GCodes Time In: 910 Time Out: 933 Total Billed Treatment Time: 23 Total Billed Treatment 1 visit GT 10 min EX 13 min ROBBIE TENORIO PT Apr 26, 2019 09:49
[2019-04-26 12:00] VITALS: BP 132/61
--- NOTE | 2019-04-26 13:27 | Physical Therapy Daily Note ---
PT Daily Note-Current Subjective Patient agrees to PT. Pain meds issued. Pain Numeric Pain Scale: 5-Moderate Pain Location: Left Location Body Site: Knee Pain Description: Acute Mental Status Patient Orientation: Normal For Age Attachments: IV Transfers Therapy Code Descriptions/Definitions Functional [place] Measure: 0=Not Assessed/NA 4=Minimal Assistance 1=Total Assistance 5=Supervision or Setup 2=Maximal Assistance 6=Modified [place] 3=Moderate Assistance 7=Complete [place] Therapy Quality Codes: 6 Independent with activity with or without an assistive device 5 Patient requires set up or clean up by helper. Patient completes activity by themselves 4 Supervision or touching assist (CGA). [place] provide cues , steadying assist 3 The helper provides less than half the effort to complete the activity 2 The helper provides more than half the effort to complete the activity 1 Dependent. The helper does all the effort to complete an activity 7 Patient refused to complete or attempt activity 9 The patient did not perform the activity before the current illness or injury 88 Not attempted due to Medical conditions or safety concerns Transfers (B, C, W/C) (FIM): 6 Scootin Rollin Supine to/from Sit: 6 Sit to/from Stand: 6 Weight Bearing Left Lower Extremity: Left Weight Bearing/Tolerated Gait Training Gait (FIM): 6 Distance (FIM): 3=150 ft Distance: 300' Gait Level of Assist: 6 Gait Assistive Device: FWW steady, antalgic, reciprocal pattern Exercises Supine Ex: Ankle pumps, Quad Set, Heel Slides, Straight leg raise Supine Reps: 15 Seated Therapy Exercises: Long arc quads Seated Reps: 15 Assessment Patient progressing with treatment plan and has been instructed to ambulate PRN in hallway with spouse. Plan dismissal in a.m. PT Short Term Goals Short Term Goals Time Frame: May 02, 2019 Transfers (B,C,W/C) (FIM): 5 Gait (FIM): 5 Gait Distance Comment: 150' Gait Level of Assist: 5 Gait Assistive Device: FWW PT Plan Treatment/Plan Treatment Plan: Continue Plan of Care Treatment Plan: Bed Mobility, Education, Functional Activity Jordi, Functional Strength, Group Therapy, Gait, Safety, Therapeutic Exercise, Transfers Treatment Duration: May 02, 2019 Frequency: 11 times per week Estimated Hrs Per Day: .25 hour per day Patient and/or Family Agrees t: Yes Time/GCodes Time In: 1255 Time Out: 1320 Total Billed Treatment Time: 25 Total Billed Treatment 1 visit GT 10 min EX 15 min ROBBIE TENORIO PT Apr 26, 2019 13:27
[2019-04-26 16:29] VITALS: BP 115/56
[2019-04-26] MEDS ORDERED: diphenhydrAMINE 50 MG/ML INJ (BENADRYL) IM PRN (16:45)
[2019-04-26] MEDS ORDERED: diphenhydrAMINE 50 MG/ML INJ (BENADRYL) IVP PRN (17:00)
[2019-04-26 19:51] VITALS: BP 143/68
[2019-04-27 00:28] VITALS: BP 123/77
[2019-04-27] MEDS: NS IV 1000 ML 1,000 ML IV SCH (00:31)
[2019-04-27] MEDS: oxyCODONE/APAP 5/325MG (PERCOCET 5) TABLET PO PRN ×6 (00:31→11:34)
--- NOTE | 2019-04-27 03:22 | DISCHARGE SUMMARY ---
DATE OF SERVICE: DIAGNOSIS: Left knee primary osteoarthritis. PROCEDURE: Left total knee arthroplasty. SUMMARY: The patient is a 48-year-old female who underwent a left total knee arthroplasty on the date of admission. Postoperatively, she did well. At the time of discharge, her wound was clean and dry. She had no calf tenderness. Negative Homans sign. She had attained independent status with physical therapy. She was tolerating diet well and tolerating pain with oral pain medication. CONDITION AT DISCHARGE: Good. DISCHARGE DIET: Regular. FOLLOWUP: In three weeks. Home physical therapy has been arranged. DISCHARGE MEDICATIONS: Home medications including aspirin and Percocet as needed for pain. ACTIVITIES: Weightbearing as tolerated with a walker as needed. Job ID: [id number] DocumentID: [id number] Dictated Date: 04/26/2019 18:44:00 Cotton Classer Date: 04/27/2019 03:22:11 Dictated By: RONNI PIZANO MD
[2019-04-27 04:00] VITALS: BP 118/73
[2019-04-27 05:36] VITALS: BP 118/73
--- NOTE | 2019-04-27 06:33 | Progress Note ---
Standard Progress Note Progress Notes/Assess & Plan Date Seen by a Provider: Apr 27, 2019 Time Seen by a Provider: 06:25 Progress/Assessment & Plan post op check no complaints radiographs--HW well positioned no fracture LLE--2 plus DP and PT pulses with brisk cap refill. intact DF and PF of toes and ankle s/p LTKA mobilize as able Final Diagnosis no complaints Vital Signs Date Time Temp Pulse Resp B/P (MAP) Pulse Ox O2 Delivery O2 Flow Rate FiO2 04/27/19 05:36 37.4 96 20 118/73 (88) 95 Room Air 04/27/19 04:00 37.4 96 20 118/73 (88) 95 Room Air 04/27/19 00:28 37.5 102 20 123/77 (92) 94 Room Air 04/26/19 20:01 Room Air 04/26/19 20:01 20 04/26/19 19:51 37.0 101 20 143/68 (93) 98 Room Air 04/26/19 16:29 37.2 107 20 115/56 (75) 98 Room Air 04/26/19 12:00 37.3 98 20 132/61 (84) 98 Room Air 04/26/19 08:50 92 Nasal Cannula 3.00 04/26/19 08:00 36.9 96 18 129/60 (83) 98 Room Air 04/26/19 07:00 20 I & O 04/27/19 07:00 Intake Total 1260 ml Balance 1260 ml LLE--incision clean and dry. no calf tenderness. Neg Jerica's s/p LTKA doing well PT today then DC home RONNI PIZANO MD Apr 27, 2019 06:33
[2019-04-27 06:45] LABS: HEMOGLOBIN 10.4 G/DL (11.5-16.0)
[2019-04-27] MEDS: MULTIVIT W/MINERALS TAB (THERAGRAN M) PO SCH (07:15)
--- NOTE | 2019-04-27 07:26 | NUR ---
JAVA DEVELOPER ANALYST DC BY DR PIZANO. 30ML MORPHINE WAS WASTED WITH MANJIT MCKEON.
[2019-04-27 08:00] VITALS: BP 123/84
[2019-04-27] MEDS ORDERED: INTRA-ARTICULAR IU ONE ×5 (08:00)
[2019-04-27] MEDS: SENNA W/DOCUSATE (SENOKOT S) TABLET PO SCH (09:10)
[2019-04-27] MEDS: ASPIRIN E.C. 81 MG (ECOTRIN) TAB PO SCH (09:10)
[2019-04-27] MEDS: ENOXAPARIN 40 MG/0.4 ML (LOVENOX) SYR SC SCH (09:10)
--- NOTE | 2019-04-27 10:24 | NUR ---
CM/SS, respond to consult and finalized discharge planning. HHC: Coordinated with patient preferred agency, [facility]. Patient is employed with [employer] and wished to remain under the care of our system agency. DME: Patient has FWW and cane, there are no other equipment requirements for her recuperation. Spouse present and capable to assist patient as needed. They identify no needs.
--- NOTE | 2019-04-27 10:33 | Physical Therapy Daily Note ---
PT Daily Note-Current Subjective Patient agrees to PT and reports she is ready to go home. Pain Numeric Pain Scale: 5-Moderate Pain Location: Left Location Body Site: Knee Pain Description: Acute Mental Status Patient Orientation: Normal For Age Transfers Therapy Code Descriptions/Definitions Functional [place] Measure: 0=Not Assessed/NA 4=Minimal Assistance 1=Total Assistance 5=Supervision or Setup 2=Maximal Assistance 6=Modified [place] 3=Moderate Assistance 7=Complete [place] Therapy Quality Codes: 6 Independent with activity with or without an assistive device 5 Patient requires set up or clean up by helper. Patient completes activity by themselves 4 Supervision or touching assist (CGA). [place] provide cues , steadying assist 3 The helper provides less than half the effort to complete the activity 2 The helper provides more than half the effort to complete the activity 1 Dependent. The helper does all the effort to complete an activity 7 Patient refused to complete or attempt activity 9 The patient did not perform the activity before the current illness or injury 88 Not attempted due to Medical conditions or safety concerns Transfers (B, C, W/C) (FIM): 6 Scootin Rollin Supine to/from Sit: 6 Sit to/from Stand: 6 Weight Bearing Left Lower Extremity: Left Weight Bearing/Tolerated Gait Training Gait (FIM): 6 Distance (FIM): 3=150 ft Distance: 300' x 2 Gait Level of Assist: 6 Gait Assistive Device: FWW antalgic, reciprocal pattern Stair Training Stair Training: Handrails/: 1 handrail, uses walker Stairs (FIM): 2 #of Steps: 3 Stairs: Pattern: Step to Level of Assist: 5 Exercises Supine Ex: Ankle pumps, Quad Set, Heel Slides, Straight leg raise Supine Reps: 15 Seated Therapy Exercises: Long arc quads Seated Reps: 15 Assessment Patient tolerated treatment well and will dismiss to home with spouse and home health on this date. PT Short Term Goals Short Term Goals Time Frame: May 02, 2019 Transfers (B,C,W/C) (FIM): 5 Gait (FIM): 5 Gait Distance Comment: 150' Gait Level of Assist: 5 Gait Assistive Device: FWW PT Plan Treatment/Plan Treatment Plan: Discontinue PT, goals met Treatment Plan: Bed Mobility, Education, Functional Activity Jordi, Functional Strength, Group Therapy, Gait, Safety, Therapeutic Exercise, Transfers Treatment Duration: May 02, 2019 Frequency: 11 times per week Estimated Hrs Per Day: .25 hour per day Patient and/or Family Agrees t: Yes Time/GCodes Time In: 805 Time Out: 840 Total Billed Treatment Time: 35 Total Billed Treatment 1 visit FA 17 min EX 18 min ROBBIE TENORIO PT Apr 27, 2019 10:33
--- NOTE | 2019-04-27 10:59 | Progress Note ---
Subjective Date Seen by a Provider: Apr 27, 2019 Time Seen by a Provider: 09:00 Subjective/Events-last exam PT SEEN WALKING IN THE [place] WITH THERAPY USING HER WALKER, SHE WAS THEN SEEN IN THE HOSPITAL ROOM AND SHE STATES THAT SHE IS HAVING IMPROVED PAIN ON ORAL MEDICATION ONLY. SHE DENIES CHEST PAIN, SHE HAS HAD A BOWEL MOVEMENT TODAY WELL. SHE REPORTS THAT SHE IS READY TO GO HOME. Review of Systems General: Fatigue, Malaise HEENT: No Head Aches Pulmonary: No Dyspnea, No Cough Cardiovascular: No: Chest Pain, Palpitations Gastrointestinal: No: Nausea, Abdominal Pain, Constipation Genitourinary: No Dysuria, No Frequency Musculoskeletal: leg pain (LEFT KNEE - IMPROVED) Neurological: No: Weakness, Confusion Objective Exam Last Set of Vital Signs Vital Signs Date Time Temp Pulse Resp B/P (MAP) Pulse Ox O2 Delivery O2 Flow Rate FiO2 04/27/19 08:00 37.1 130 18 123/84 (97) 95 Room Air 04/26/19 08:50 3.00 Capillary Refill : Less Than 3 Seconds I&O Intake and Output 04/27/19 00:00 Intake Total 2410 ml Output Total 400 ml Balance 2010 ml Intake Oral 1400 ml IV Total 1010 ml Output Urine Total 400 ml # Voids 6 General: Alert, Oriented X3, Cooperative HEENT: Atraumatic, PERRLA Neck: Supple Lungs: Clear to Auscultation, Normal Air Movement Heart: Regular Rate Abdomen: Normal Bowel Sounds, Soft Extremities: Other Neuro: Cranial Nerves 3-12 NL Psych/Mental Status: Mental Status NL, Mood NL Results Lab Laboratory Tests 04/27/19 06:05: Hemoglobin 10.4L, Hematocrit 33L Assessment/Plan Assessment/Plan Assess & Plan/Chief Complaint LEFT KNEE OSTEOARTHRITIS STATUS POST LEFT KNEE REPLACEMENT LEFT KNEE PAIN CONSTIPATION LEFT KNEE OSTEOARTHRITIS AND SHE IS POST-OP LEFT KNEE REPLACEMENT DAY #1 WITH LEFT KNEE PAIN - IV PAIN MEDICATION THROUGH PLATER PRODUCTION - PT TO CONTINUE WITH ORAL MEDICATIONS AND I HAVE ADVISED HER THAT SHE IS TO LET THE STAFF KNOW IF HER PAIN IS NOT CONTROLLED SO THAT SHE CAN BETTER PARTICIPATE IN PHYSICAL THERAPY. CONSTIPATION - PRN COLACE, SENNA PT TO BE DISCHARGED TODAY AND SHE WILL HAVE HOME HEALTH AND ICE PACK FOR HER KNEE AT HOME. Clinical Quality Measures Admission Status Admission Dx LEFT KNEE OSTEOARTHRITIS STATUS POST LEFT KNEE REPLACEMENT LEFT KNEE PAIN CONSTIPATION LEFT KNEE OSTEOARTHRITIS AND SHE IS POST-OP LEFT KNEE REPLACEMENT DAY #1 WITH LEFT KNEE PAIN - IV PAIN MEDICATION THROUGH PLATER PRODUCTION - PT TO CONTINUE WITH ORAL MEDICATIONS AND I HAVE ADVISED HER THAT SHE IS TO LET THE STAFF KNOW IF HER PAIN IS NOT CONTROLLED SO THAT SHE CAN BETTER PARTICIPATE IN PHYSICAL THERAPY. CONSTIPATION - PRN COLACE, SENNA DVT/VTE Risk/Contraindication: Risk Factor Score Per Nursin RFS Level Per Nursing on Admit: 4+=Very High JERMAIN WALLACE MD Apr 27, 2019 10:59
[2019-04-27 11:35] VITALS: BP 123/84
--- NOTE | 2019-04-27 12:00 | NUR ---
DISCHARGE INSTRUCTIONS GIVEN, DRESSING CHANGED TO LEFT KNEE, VILMA INTACT, NO SWELLING OR DRAINAGE, ISLAND DRESSING APPLIED, LAINEY HOSE APPLIED, POLAR ICE PACK ON, NIRAV CPM MACHINE WELL THIS AM, HAD BM, VOIDING WITHOUT DIFFICULTY, AT BEDSIDE.
--- NOTE | 2019-04-27 12:46 | NUR ---
IRF Evaluation Order received to evaluate patient for the ARU. According to PT, patient is ambulating (300ft x2, FWW) and transferring with modified independence, as well as completing 3 steps/stairs with supervision. According to OT, patient is requiring minimum assistance with ADLs. Although patient presents with continued needs for OT, she does not meet criteria due to [facility] guideline, "Require active and ongoing intervention of multiple therapy disciplines (PT/OT/POST CLOSING SPECIALIST)..." Thank you for this referral.
== END 2019-04-27 12:10 | disposition home health service (06) | DRG 470 ==
LOC: 4TH 06:00 → SURG 06:01 → 4TH 10:38
PROVIDERS: ADMIT Orthopaedic Surgery; ATTEND Orthopaedic Surgery
PROC: 0SRD0J9 Replacement of Left Knee Joint with Synthetic Substitute, Cemented, Open Approach (ICD-10-PCS; principal; 2019-04-25 07:33)
DX: M17.12 Unilateral primary osteoarthritis, left knee (principal); K59.00 Constipation, unspecified
CPT/HCPCS: 36415; 73560; 84703; 85014; 85018; 86850; 86900; 86901

== ENCOUNTER → 2019-06-06 | Outpatient (CLI) | payer OTHER ==
[~2019-06-06] MED LIST changes: +OXYC1TAB87 PO
--- NOTE | 2019-06-07 10:09 | Diagnostic Imaging Report ---
EXAMINATION: Digital mammogram INDICATION: Bilateral screening This study was compared to the prior exams of 05/26/2018, 05/19/2017 and 05/20/2016. At this time there are no current complaints. The current study was also evaluated with a Computer Aided Detection (CAD) system. FINDINGS: The fibroglandular tissue in both breasts is heterogeneously dense. This does limit the sensitivity of this exam. Overall, there does not appear to have been any significant change when compared to the prior study. No primary or secondary sign of malignancy is noted. IMPRESSION: There is no radiographic evidence for malignancy. ACR BI-RADS Category 1: Negative. Result letter will be mailed to the patient. Note: At least 10% of breast cancer is not imaged by mammography. Dictated by: Dictated on workstation # [id number]
== END ==
LOC: RAD 11:33
PROVIDERS: ATTEND Nurse Practitioner Family
DX: Z12.31 Encounter for screening mammogram for malignant neoplasm of breast (principal)
CPT/HCPCS: 77067

== ENCOUNTER 2019-07-18 11:14 | Outpatient (RCR) | payer OTHER | END 2019-07-18 13:03 | disposition home or self-care (01) | PROVIDERS: ATTEND Orthopaedic Surgery | DX: Z47.1 Aftercare following joint replacement surgery (principal); R29.898 Other symptoms and signs involving the musculoskeletal system; Z96.652 Presence of left artificial knee joint ==

== ENCOUNTER → 2020-07-10 | Outpatient (CLI) | payer OTHER ==
--- NOTE | 2020-07-10 09:36 | Diagnostic Imaging Report ---
INDICATION: Routine screening. Comparison is made with prior mammogram from 06/06/2019 and 05/26/2018. 2-D and 3-D bilateral screening mammography was performed with CAD. Both breasts are heterogeneously dense, limiting the sensitivity of mammography. The overall parenchymal pattern is stable. No spiculated mass or malignant appearing microcalcifications are seen. Axillae are unremarkable. IMPRESSION: BI-RADS Category 1 No mammographic features suspicious for malignancy are identified. ACR BI-RADS Category 1: Negative. Result letter will be mailed to the patient. Note: At least 10% of breast cancer is not imaged by mammography. Dictated by: Dictated on workstation # [id number]
== END ==
LOC: RAD 06:49
PROVIDERS: ATTEND Family Medicine
DX: Z12.31 Encounter for screening mammogram for malignant neoplasm of breast (principal)
CPT/HCPCS: 77063; 77067

== ENCOUNTER → 2021-04-23 | Outpatient (CLI) | payer OTHER ==
[2021-04-23 08:08] LABS: BASOPHILS # (AUTO) 0.1 10^3/uL (0.0-0.1); BASOPHILS % (AUTO) 1 % (0-10); EOSINOPHILS # (AUTO) 0.2 10^3/uL (0.0-0.3); EOSINOPHILS % (AUTO) 2 % (0-10); HEMATOCRIT 45 % (35-52); HEMOGLOBIN 14.4 g/dL (11.5-16.0); LYMPHOCYTES # (AUTO) 2.3 10^3/uL (1.0-4.0); LYMPHOCYTES % (AUTO) 23 % (12-44); MEAN CORPUSCULAR HEMOGLOBIN 29 pg (25-34); MEAN CORPUSCULAR HGB CONC 32 g/dL (32-36); MEAN CORPUSCULAR VOLUME 91 fL (80-99); MONOCYTES # (AUTO) 0.7 10^3/uL (0.0-1.0); MONOCYTES % (AUTO) 7 % (0-12); NEUTROPHILS # (AUTO) 6.7 10^3/uL (1.8-7.8); NEUTROPHILS % (AUTO) 67 % (42-75); PLATELET COUNT 349 10^3/uL (130-400)
[2021-04-23 08:55] LABS: BILIRUBIN,TOTAL 0.4 MG/DL (0.1-1.0); CALCIUM 9.2 MG/DL (8.5-10.1); CREATININE SERUM 0.69 MG/DL (0.60-1.30); POTASSIUM 4.2 MMOL/L (3.6-5.0); TOTAL PROTEIN 7.2 GM/DL (6.4-8.2)
== END ==
LOC: LAB 07:53
PROVIDERS: ATTEND Nurse Practitioner Family
DX: Z00.00 Encounter for general adult medical examination without abnormal findings (principal)
CPT/HCPCS: 36415; 80053; 80061; 84443; 85025

== ENCOUNTER 2021-05-08 05:34 | Outpatient (CLI) | payer OTHER ==
[~2021-05-08] VITALS: Ht 157.5 cm; Wt 100.7 kg
== END 2021-05-11 08:54 | disposition home or self-care (01) ==
LOC: PREOP 05:34
PROVIDERS: ATTEND Internal Medicine
DX: Z01.818 Encounter for other preprocedural examination (principal)

== ENCOUNTER 2021-05-15 08:43 | Day surgery (SDC) | payer OTHER ==
--- NOTE | 2021-05-08 08:46 | HISTORY AND PHYSICAL ---
DATE OF SERVICE: COLONOSCOPY HISTORY AND PHYSICAL DATE OF ADMISSION: ____. HISTORY OF PRESENT ILLNESS: The patient is a 50-year-old white female referred by EVA Younger. This is her first screening colonoscopy and she is deemed to be of average risk as she is not aware of any family history for colon cancer or colon polyps. She reports that she has been in her usual state of health with no problems with bright red blood per rectum or melena. She denies bowel habit change with no significant problems with constipation or diarrhea. She denies abdominal pain. PAST MEDICAL HISTORY: Significant for osteoarthritis of the knees. PAST SURGICAL HISTORY: She has had bilateral arthroscopic procedures on the knees. No other reported. MEDICATIONS: She takes meloxicam 15 mg daily, aspirin 81 mg daily for primary prevention, Tylenol Arthritis usually 1250 mg daily and glucosamine with chondroitin supplement and multiple vitamins. ALLERGIES: She reports allergies to ERYTHROMYCIN, which causes GI distress. FAMILY HISTORY: Father at age 67, complications of valvular heart surgery. Mother at age of 78, had a history of breast cancer, but of Alzheimer's dementia. 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 REVIEW OF SYSTEMS: CONSTITUTIONAL: Denies night sweats, chills or fevers. She is fully vaccinated for COVID. PULMONARY: Denies cough, wheezing or shortness of breath. CARDIOVASCULAR: Denies chest pain, orthopnea, PND or pedal edema. GASTROINTESTINAL: As noted in the HPI. PHYSICAL EXAMINATION: GENERAL: Reveals a pleasant white female in no acute distress. VITAL SIGNS: Weight is 247 pounds and blood pressure is 132/92. HEENT: Unremarkable. Sclerae nonicteric. CHEST: Clear to auscultation. CARDIOVASCULAR: Reveals a regular rate and rhythm without murmur, S3 or S4. ABDOMEN: Soft, supple without mass, organomegaly or tenderness. EXTREMITIES: Reveal no cyanosis, clubbing or edema. ASSESSMENT AND PLAN: The patient is being set up for her first screening colonoscopy. Prep instructions with the Suprep kit were given and questions were answered. Electronic medical record was reviewed. I thank you for the referral of this pleasant lady. Job ID: [id number] DocumentID: [id number] Dictated Date: 05/04/2021 16:47:16 Show Card Letterer Date: 05/04/2021 17:01:00 Dictated By: ERIN SARMIENTO MD
[~2021-05-15] VITALS: Ht 157.5 cm; Wt 100.7 kg
[2021-05-15 08:55] VITALS: BP 166/95
[2021-05-15] MEDS ORDERED: LIDOCAINE JELLY 2% 6 ML SYRINGE MM PRN (09:00)
[2021-05-15] MEDS ORDERED: LACTATED RINGERS 1,000 ML IV ONE (09:06)
--- NOTE | 2021-05-15 09:23 | Pre-Op Note & Conscious Sedat ---
Pre-Operative Progress Note H&P Reviewed The H&P was reviewed, patient examined and no changes noted. Date H&P Reviewed: May 15, 2021 Time H&P Reviewed: 09:23 Conscious Sedation Pre-Proced ASA Score 2 For ASA 3 and 4: Consider anesthesia and medical clearance. Also, for patients with a history of failed moderate sedation consider anesthesia. Airway Lungs Heart ASA score ASA 1: a normal healthy patient ASA 2: a patient with a mild systemic disease (mid diabetes, controlled hypertension, obesity ASA 3: a patient with a severe systemic disease that limits activity (angina, COPD, prior Myocardial infarction) ASA 4: a patient with an incapacitating disease that is a constant threat to life (CHF, renal failure) ASA 5: a moribund patient not expected to survive 24 hrs. (ruptured aneurysm) ASA 6: a declared brain- patient whose organs are being harvested. For emergent operations, add the letter E after the classification Mallampati Classification Grade 2 Sedation Plan Analgesia, Amnesia, Plan communicated to team members, Discussed options with patient/fam, Discussed risks with patient/fam The patient is an appropriate candidate to undergo the planned procedure, sedation, and anesthesia. The patient immediately re-assessed prior to indication. ERIN SARMIENTO MD May 15, 2021 09:23
[2021-05-15] MEDS ORDERED: MIDAZOLAM 2 MG/2 ML (VERSED) VIAL ONE (09:50)
[2021-05-15] MEDS ORDERED: PROPOFOL INJECTION 50 ML IV ONE (09:51)
[2021-05-15 10:20] VITALS: BP 112/56
[2021-05-15 10:25] VITALS: BP 107/57
[2021-05-15 10:30] VITALS: BP 108/60
[2021-05-15] MEDS ORDERED: LACTATED RINGERS 1,000 ML IV SCH (10:45)
[2021-05-15 10:55] VITALS: BP 123/77
[2021-05-15 11:00] VITALS: BP 123/77
--- NOTE | 2021-05-15 12:53 | Anesthesia-General Post-Op ---
MAC Patient Condition Mental Status/LOC: Same as Preop Cardiovascular: Satisfactory Nausea/Vomiting: Absent Respiratory: Satisfactory Pain: Controlled Complications: Absent Post Op Complications Complications None Follow Up Care/Instructions Patient Instructions None needed. Anesthesiology Discharge Order Discharge Order Patient is doing well, no complaints, stable vital signs, no apparent adverse anesthesia problems. No complications reported per nursing. SIMA GIL CRNA May 15, 2021 12:53
--- NOTE | 2021-05-15 14:22 | OPERATIVE REPORT ---
DATE OF SERVICE: COLONOSCOPY SUMMARY INDICATION FOR THE PROCEDURE: Screening colonoscopy. DESCRIPTION OF PROCEDURE: The patient was placed in the left lateral decubitus position. Prior to undergoing colonoscopy, digital rectal evaluation was performed. Anal sphincter tone was normal and the perianal reflex was normal. No abnormalities were noted on digital inspection of anal canal and distal rectal vault. The colonoscope was then inserted into the rectum and under direct visualization advanced to cecum. The cecum was identified by identification of the ileocecal valve and cecal strap. Photographic documentation was obtained. Careful inspection was made as consult was withdrawn. Quality of prep was good. FINDINGS: There was no evidence for internal or external hemorrhoids. The rectum, sigmoid colon, descending colon, transverse colon, ascending colon, and cecum were unremarkable with no evidence for diverticular disease, neoplasia or other abnormality. ASSESSMENT: Normal colonoscopy to the cecum. We would advocate consideration for repeat screening colonoscopy in 10 years. I thank you for the referral of this pleasant lady. Job ID: [id number] DocumentID: [id number] Dictated Date: 05/15/2021 10:20:45 Redrawer Date: 05/15/2021 14:21:59 Dictated By: ERIN SARMIENTO MD
== END 2021-05-15 11:25 | disposition home or self-care (01) ==
LOC: ENDO 08:43
PROVIDERS: ATTEND Internal Medicine
DX: Z12.11 Encounter for screening for malignant neoplasm of colon (principal); M17.0 Bilateral primary osteoarthritis of knee; Z79.82 Long term (current) use of aspirin; Z79.899 Other long term (current) drug therapy
CPT/HCPCS: 84703

== ENCOUNTER → 2021-07-09 | Outpatient (CLI) | payer OTHER ==
--- NOTE | 2021-07-09 09:11 | Diagnostic Imaging Report ---
Indication: Routine screening. Comparison is made with prior mammogram 07/10/2020 and 06/06/2019. 2-D and 3-D bilateral screening mammography was performed with CAD. Both breasts are heterogeneously dense, limiting the sensitivity of mammography. The parenchymal pattern is stable. There are benign calcifications present. No mass or malignant-appearing microcalcifications are seen. Axillae are unremarkable. IMPRESSION: BI-RADS Category 2 No mammographic features suspicious for malignancy are identified. ACR BI-RADS Category 2: Benign findings. Result letter will be mailed to the patient. Note: At least 10% of breast cancer is not imaged by mammography. Dictated by: Dictated on workstation # [id number]
== END ==
LOC: RAD 06:26
PROVIDERS: ATTEND Family Medicine
DX: Z12.31 Encounter for screening mammogram for malignant neoplasm of breast (principal)
CPT/HCPCS: 77063; 77067

== ENCOUNTER 2021-12-09 15:45 | Emergency (ER) | payer OTHER ==
[~2021-12-09] VITALS: Ht 157 cm; Wt 100.0 kg
[2021-12-09] MEDS ORDERED: KETOROLAC 30 MG/ML VIAL IVP STA (15:52)
--- NOTE | 2021-12-09 15:59 | ED GU-Female ---
General Chief Complaint: Back Problems Stated Complaint: R FLANK PAIN, NAUSEA, VOMITING Source: patient History of Present Illness Date Seen by Provider: December 09, 2021 Time Seen by Provider: 15:45 Initial Comments PT ARRIVES VIA POV FROM HOME C/O RIGHT FLANK PAIN SINCE THIS AM--FAIRLY SUDDEN ONSET, AFTER GETTING HOME FROM WORK ( PT WORKS NIGHTS) BEGAN HAVING NAUSEA AND VOMITING AN HOUR AGO. TRIED PHENERGAN SUPPOSITORY, BUT DID NOT WORK + SWEATS, BUT NO KNOWN FEVER RECENTLY HAD UTI SYMPTOMS AND THOSE IMPROVED WITH MACROBID AND PYRIDIUM- PRESCRIBED 10/24/21 THEN DEVELOPED BRONCHITIS SYMPTOMS AND WAS PRESCRIBED DOXYCYCLINE, TESSALON AND PREDNISONE--THOSE SYMPTOMS RESOLVED ALSO HAS HISTORY OF KIDNEY INFECTIONS THAT HAVE REQUIRED HOSPITALIZATION AND THIS FEELS THE SAME. PCP: DR. WALLACE Allergies and Home Medications Allergies Coded Allergies: blue dye (Unverified Allergy, Unknown, 01/07/17) erythromycin base (Verified Allergy, Unknown, 04/17/19) Patient Home Medication List Aspirin (Aspir 81) 81 Mg Tablet.dr, 81 MG PO DAILY@1800, (Reported) Entered as Reported by: CHANG RUIZ on 04/17/19 0848 Nrdkfibj-Qteqycf-Whtc 149-Hyal (Glucosamine-Chondr Complex Tab) 1 Each Tablet, 2 EACH PO DAILY@1800, (Reported) Entered as Reported by: CHANG RUIZ on 04/17/19 0848 Hydrocodone Bit/Acetaminophen (HYDROcodone/APAP 7.5/325 TAB) 1 Ea Tablet, 1 EA PO Q4-6 PRN for PAIN Prescribed by: IMELDA AGUIRRE on 12/09/211657 Ketorolac Tromethamine (Ketorolac Tromethamine) 10 Mg Tablet, 10 MG PO Q6H Prescribed by: IMELDA AGUIRRE on 12/09/211657 Levofloxacin (Levofloxacin) 500 Mg Tablet, 500 MG PO DAILY Prescribed by: IMELDA AGUIRRE on 12/09/211657 Prochlorperazine Maleate (Compazine) 25 Mg Supp.rect, 25 MG RC Q6H Prescribed by: IMELDA AGUIRRE on 12/09/211657 Tamsulosin HCl (Flomax) 0.4 Mg Cap, 0.4 MG PO DAILY Prescribed by: IMELDA AGUIRRE on 12/09/211657 Review of Systems Review of Systems Constitutional: diaphoresis Respiratory: no symptoms reported Cardiovascular: no symptoms reported Gastrointestinal: see HPI, nausea, vomiting Genitourinary: see HPI, flank pain : No Musculoskeletal: see HPI, back pain Skin: no symptoms reported Psychiatric/Neurological: No Symptoms Reported Endocrine: No Symptoms Reported Hematologic/Lymphatic: No Symptoms Reported Past Dqmyrgt-Ohcdol-Mhajfr Hx Patient Social History Tobacco Use?: No Substance use?: No Alcohol Use?: No Immunizations Up To Date First/Initial COVID19 Vaccinat: JUL 2020 Second COVID19 Vaccination Joseph: AUG 2020 Third COVID19 Vaccination Date: JUL 2020 Seasonal Allergies Seasonal Allergies: No Past Medical History Surgeries: Yes (bilat knee scope, TKR) Joint Replacement, Orthopedic Respiratory: No Cardiac: No Neurological: No Reproductive Disorders: No Female Reproductive Disorders: Denies Sexually Transmitted Disease: No HIV/AIDS: No Genitourinary: No Gastrointestinal: No Musculoskeletal: Yes (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; CHRONIC LEFT KNEE PAIN--S/P LEFT KNEE SCOPE) Arthritis Endocrine: No HEENT: No Loss of Vision: Bilateral Hearing Impairment: Denies Cancer: No Psychosocial: No Integumentary: No Blood Disorders: No Adverse Reaction/Blood Tranf: No (N/A) Family Medical History Alzheimer's disease 19 MOTHER Cardiovascular disease 19 FATHER Dementia 19 MOTHER Diabetes mellitus 19 FATHER G8 BROTHER FH: breast cancer 19 MOTHER Hypertension 19 FATHER 19 MOTHER G8 BROTHER TIAs 19 MOTHER Thyroid disease 19 MOTHER Physical Exam Vital Signs Vital Signs - First Documented 12/09/21 15:50 Temp 36.7 Pulse 91 Resp 20 B/P (MAP) 150/85 (106) Capillary Refill : Height, Weight, BMI Height: 5'2.00" Weight: 185lbs. 0.0oz. 83.372459gl; 40.59 BMI Method:Stated General Appearance: WD/WN, other (LOOKS UNCOMFORTABLE. PALE/DIAPHORETIC. ) Cardiovascular: regular rate, rhythm, no murmur Respiratory: normal breath sounds Gastrointestinal: non tender, soft Extremities: normal inspection Neurologic/Psychiatric: no motor/sensory deficits, alert, oriented x 3 Skin: normal color, warm/dry Progress/Results/Core Measures Suspected Sepsis SIRS Temperature: Pulse: Respiratory Rate: Laboratory Tests 12/09/21 16:00: White Blood Count 16.2H Blood Pressure / Mean: Laboratory Tests 12/09/21 16:00: Creatinine 0.73, Platelet Count 446H, Total Bilirubin 0.3 Results/Orders Lab Results Laboratory Tests Test 12/09/21 16:00 Range/Units White Blood Count 16.2 H 4.3-11.0 10^3/uL Red Blood Count 4.62 3.80-5.11 10^6/uL Hemoglobin 13.2 11.5-16.0 g/dL Hematocrit 41 35-52 % Mean Corpuscular Volume 89 80-99 fL Mean Corpuscular Hemoglobin 29 25-34 pg Mean Corpuscular Hemoglobin Concent 32 32-36 g/dL Red Cell Distribution Width 13.9 10.0-14.5 % Platelet Count 446 H 130-400 10^3/uL Mean Platelet Volume 9.4 9.0-12.2 fL Immature Granulocyte % (Auto) 0 % Neutrophils (%) (Auto) 81 H 42-75 % Lymphocytes (%) (Auto) 11 L 12-44 % Monocytes (%) (Auto) 6 0-12 % Eosinophils (%) (Auto) 1 0-10 % Basophils (%) (Auto) 1 0-10 % Neutrophils # (Auto) 13.1 H 1.8-7.8 10^3/uL Lymphocytes # (Auto) 1.8 1.0-4.0 10^3/uL Monocytes # (Auto) 1.0 0.0-1.0 10^3/uL Eosinophils # (Auto) 0.2 0.0-0.3 10^3/uL Basophils # (Auto) 0.1 0.0-0.1 10^3/uL Immature Granulocyte # (Auto) 0.1 0.0-0.1 10^3/uL Neutrophils % (Manual) 75 % Lymphocytes % (Manual) 9 % Monocytes % (Manual) 11 % Eosinophils % (Manual) 2 % Basophils % (Manual) 0 % Band Neutrophils 3 % Blood Morphology Comment NORMAL Urine Color YELLOW Urine Clarity CLEAR Urine pH 6.0 5-9 Urine Specific [place] 1.025 H 1.016-1.022 Urine Protein TRACE H NEGATIVE Urine Glucose (UA) NEGATIVE NEGATIVE Urine Ketones NEGATIVE NEGATIVE Urine Nitrite NEGATIVE NEGATIVE Urine Bilirubin NEGATIVE NEGATIVE Urine Urobilinogen 0.2 < = 1.0 MG/DL Urine Leukocyte Esterase NEGATIVE NEGATIVE Urine RBC (Auto) 1+ H NEGATIVE Urine RBC 2-5 H /HPF Urine WBC 5-10 H /HPF Urine Squamous Epithelial Cells 5-10 /HPF Urine Crystals NONE /LPF Urine Bacteria TRACE /HPF Urine Casts NONE /LPF Urine Mucus NEGATIVE /LPF Urine Culture Indicated YES Sodium Level 140 135-145 MMOL/L Potassium Level 3.7 3.6-5.0 MMOL/L Chloride Level 104 98-107 MMOL/L Carbon Dioxide Level 22 21-32 MMOL/L Anion Gap 14 5-14 MMOL/L Blood Urea Nitrogen 20 H 7-18 MG/DL Creatinine 0.73 0.60-1.30 MG/DL Estimat Glomerular Filtration Rate 98 BUN/Creatinine Ratio 27 Glucose Level 136 H 70-105 MG/DL Calcium Level 9.5 8.5-10.1 MG/DL Corrected Calcium 9.2 8.5-10.1 MG/DL Total Bilirubin 0.3 0.1-1.0 MG/DL Aspartate Amino Transf (AST/SGOT) 25 5-34 U/L Alanine Aminotransferase (ALT/SGPT) 19 0-55 U/L Alkaline Phosphatase 71 40-136 U/L Total Protein 7.5 6.4-8.2 GM/DL Albumin 4.4 3.2-4.5 GM/DL Amylase Level 28 25-125 U/L Lipase 27 8-78 U/L Serum Test, Qualitative NEGATIVE NEGATIVE My Orders Orders - IMELDA AGUIRRE DO Ed Iv/Invasive Line Start (12/09/21 15:52) Monitor-Rhythm Ecg Trace Only (12/09/21 15:52) Ct Abd/Pelvis Wo(Kidney Stone) (12/09/21 15:52) Abdomen/Kub 1view (12/09/21 15:52) Amylase (12/09/21 15:52) Cbc With Automated Diff (12/09/21 15:52) Comprehensive Metabolic Panel (12/09/21 15:52) Hcg,Qualitative Serum (12/09/21 15:52) Lipase (12/09/21 15:52) Ua Culture If Indicated (12/09/21 15:52) Ed Iv/Invasive Line Start (12/09/21 15:52) Lactated Ringers (Lr 1000 Ml Iv Solution (12/09/21 16:00) Ketorolac Injection (Toradol Injection) (12/09/21 15:52) Prochlorperazine Injection (Compazine In (12/09/21 16:00) Manual Differential (12/09/21 16:00) Urine Culture (12/09/21 16:00) Prochlorperazine Injection (Compazine In (12/09/21 16:45) Morphine Injection (Morphine Injection (12/09/21 16:43) Ceftriaxone 1 Gm Pre-Mix (Rocephin 1 Gm (12/09/21 16:44) Ed Iv/Invasive Line Start (12/09/21 16:50) Ns Iv 1000 Ml (Sodium Chloride 0.9%) (12/09/21 17:00) Tamsulosin Capsule (Flomax Capsule) (12/09/21 17:00) Medications Given in ED Current Medications Medications Dose Ordered Sig/Denise Route Start Time Stop Time Status Last Admin Dose Admin Lactated Ringer's 1,000 ml @ 0 mls/hr Q0M ONCE IV 12/09/21 16:00 12/09/21 16:01 DC 12/09/21 16:04 1,000 MLS/HR Prochlorperazine Edisylate 10 mg ONCE ONCE IV 12/09/21 16:00 12/09/21 16:01 DC 12/09/21 16:05 10 MG Prochlorperazine Edisylate 10 mg ONCE ONCE IV 12/09/21 16:45 12/09/21 16:46 DC 12/09/21 16:56 10 MG Vital Signs/I&O 12/09/21 15:50 Temp 36.7 Pulse 91 Resp 20 B/P (MAP) 150/85 (106) Capillary Refill : Progress Note : Progress Note GIVEN: -IV FLUIDS -COMPAZINE -TORADOL -MORPHINE -ROCEPHIN -FLOMAX SYMPTOMS COMPLETELY RESOLVED AT DISMISSAL Diagnostic Imaging Comments KUB--PER RADIOLOGIST REPORT AT 1654 FINDINGS: The left aspect of the abdomen is excluded from the wgxkc-rq-viqa, therefore, examination is slightly limited. No suspicious calcifications are identified overlying the bilateral renal shadows or the expected course of the bilateral ureters. Stool is noted within the colon. No dilated loops of large or small bowel. No free air. [place] left curvature of the spine with mild degenerative changes. No acute osseous abnormality. No suspicious radiopaque foreign body within the [id number]-vj-poqw. IMPRESSION: No suspicious calcifications identified. Nonobstructive bowel gas pattern without free air. Mild apex left curvature of the spine with mild degenerative changes. CT ABDOMEN/PELVIS--PER RADIOLOGIST REPORT AT [facility] FINDINGS: Lung bases are clear. The heart is normal in size. The liver demonstrates no focal lesions. The spleen appears normal. The pancreas is normal. The adrenal glands are normal. There is mild right hydronephrosis and hydroureter. There is a small obstructing calculus in the right ureterovesicular junction, which measures 3 mm in size. The left kidney appears normal with no calculi or hydronephrosis. The appendix is normal. The bowel loops are nondistended without obstruction. There is diverticulosis of the descending and sigmoid colon without diverticulitis. No free fluid or free air is seen. No acute osseous abnormality is identified. There are mild degenerative changes at L5-S1. The aorta is normal in caliber. IMPRESSION: 1. Small 3 mm obstructing calculus at the right ureterovesicular junction causing mild right hydroureteronephrosis. Reviewed: Reviewed by Nh Departure Communication (Admissions) 9030--SPOKE WITH DR. CHISHOLM, UROLOGIST, WILL SEE PT IN OFFICE THIS WEEK. Impression Primary Impression: Right distal ureteral calculus Additional Impression: UTI (urinary tract infection) Disposition: HOME, SELF-CARE Condition: Improved Departure-Patient Inst. Decision time for Depature: 17:00 Referrals: JERMAIN WALLACE MD (PCP/Family) Primary Care Physician BREANA CHISHOLM MD Patient Instructions: Kidney Stone, Adult ED, How to Strain Your Urine, Urinary Tract Infection, Adult ED, Kidney Stone Diet Add. Discharge Instructions: LOTS OF CLEAR LIQUIDS STRAIN ALL URINE--RETURN ANY STONES TO DR. CHISHOLM'S OFFICE. FOLLOW UP WITH DR. CHISHOLM IN 1-2 DAYS, RETURN TO ER IF WORSE All discharge instructions reviewed with patient and/or family. Voiced understanding. Scripts Ketorolac Tromethamine (Ketorolac Tromethamine) 10 Mg Tablet 10 MG PO Q6H for Pain, #15 TAB Prov: IMELDA AGUIRRE DO 12/09/21 Hydrocodone Bit/Acetaminophen (HYDROcodone/APAP 7.5/325 TAB) 1 Ea Tablet 1 EA PO Q4-6 PRN for PAIN, #20 TAB Prov: IMELDA AGUIRRE DO 12/09/21 Prochlorperazine Maleate (Compazine) 25 Mg Supp.rect 25 MG RC Q6H for Nausea/Vomiting, #10 SUPP.RECT Prov: IMELDA AGUIRRE DO 12/09/21 Tamsulosin HCl (Flomax) 0.4 Mg Cap 0.4 MG PO DAILY, #10 CAP Prov: IMELDA AGUIRRE DO 12/09/21 Levofloxacin (Levofloxacin) 500 Mg Tablet 500 MG PO DAILY, #7 TAB 0 Refills Prov: IMELDA AGUIRRE DO 12/09/21 IMELDA AGUIRRE DO December 09, 2021 15:59
[2021-12-09] MEDS ORDERED: PROCHLORPERAZINE 10 MG/2ML INJ (COMPAZINE) IV ONE ×2 (16:00→16:45)
[2021-12-09] MEDS ORDERED: LACTATED RINGERS 1,000 ML IV ONE (16:00)
[2021-12-09 16:22] LABS: BILIRUBIN,URINE NEGATIVE (NEGATIVE); CLARITY,URINE CLEAR; COLOR,URINE YELLOW; GLUCOSE, URINE (UA) NEGATIVE (NEGATIVE); KETONES,URINE NEGATIVE (NEGATIVE); LEUKOCYTE ESTERASE ,URINE NEGATIVE (NEGATIVE); NITRITE,URINE NEGATIVE (NEGATIVE); PROTEIN,URINE TRACE (NEGATIVE)
[2021-12-09 16:31] LABS: BASOPHILS # (AUTO) 0.1 10^3/uL (0.0-0.1); BASOPHILS % (AUTO) 1 % (0-10); EOSINOPHILS # (AUTO) 0.2 10^3/uL (0.0-0.3); EOSINOPHILS % (AUTO) 1 % (0-10); HEMATOCRIT 41 % (35-52); HEMOGLOBIN 13.2 g/dL (11.5-16.0); LYMPHOCYTES # (AUTO) 1.8 10^3/uL (1.0-4.0); LYMPHOCYTES % (AUTO) 11 % (12-44); MEAN CORPUSCULAR HEMOGLOBIN 29 pg (25-34); MEAN CORPUSCULAR HGB CONC 32 g/dL (32-36); MEAN CORPUSCULAR VOLUME 89 fL (80-99); MEAN PLATELET VOLUME 9.4 fL (9.0-12.2); MONOCYTES % (AUTO) 6 % (0-12); NEUTROPHILS # (AUTO) 13.1 10^3/uL (1.8-7.8); NEUTROPHILS % (AUTO) 81 % (42-75); PLATELET COUNT 446 10^3/uL (130-400); WHITE BLOOD COUNT 16.2 10^3/uL (4.3-11.0)
--- NOTE | 2021-12-09 16:37 | Diagnostic Imaging Report ---
PROCEDURE: CT urinary tract, rule out kidney stone. TECHNIQUE: Multiple contiguous axial images were obtained through the abdomen and pelvis without the use of intravenous contrast. Auto Exposure Controls were utilized during the CT exam to meet ALARA standards for radiation dose reduction. INDICATION: Right flank pain, nausea, and vomiting. COMPARISON: None. FINDINGS: Lung bases are clear. The heart is normal in size. The liver demonstrates no focal lesions. The spleen appears normal. The pancreas is normal. The adrenal glands are normal. There is mild right hydronephrosis and hydroureter. There is a small obstructing calculus in the right ureterovesicular junction, which measures 3 mm in size. The left kidney appears normal with no calculi or hydronephrosis. The appendix is normal. The bowel loops are nondistended without obstruction. There is diverticulosis of the descending and sigmoid colon without diverticulitis. No free fluid or free air is seen. No acute osseous abnormality is identified. There are mild degenerative changes at L5-S1. The aorta is normal in caliber. IMPRESSION: 1. Small 3 mm obstructing calculus at the right ureterovesicular junction causing mild right hydroureteronephrosis. Dictated by: Dictated on workstation # [id number]
[2021-12-09 16:39] LABS: ALBUMIN 4.4 GM/DL (3.2-4.5); POTASSIUM 3.7 MMOL/L (3.6-5.0)
[2021-12-09 16:40] LABS: CALCIUM 9.5 MG/DL (8.5-10.1)
--- NOTE | 2021-12-09 16:40 | Diagnostic Imaging Report ---
INDICATION: Abdominal pain. COMPARISON: CT from the same date. TECHNIQUE: Single radiograph of the abdomen dated December 09, 2021. FINDINGS: The left aspect of the abdomen is excluded from the [id number], therefore, examination is slightly limited. No suspicious calcifications are identified overlying the bilateral renal shadows or the expected course of the bilateral ureters. Stool is noted within the colon. No dilated loops of large or small bowel. No free air. [place] left curvature of the spine with mild degenerative changes. No acute osseous abnormality. No suspicious radiopaque foreign body within the [id number]. IMPRESSION: No suspicious calcifications identified. Nonobstructive bowel gas pattern without free air. Mild apex left curvature of the spine with mild degenerative changes. Dictated by: Dictated on workstation # [id number]
[2021-12-09 16:41] LABS: BACTERIA,URINE TRACE /HPF
[2021-12-09 16:42] LABS: TOTAL PROTEIN 7.5 GM/DL (6.4-8.2)
[2021-12-09 16:43] LABS: BILIRUBIN,TOTAL 0.3 MG/DL (0.1-1.0)
[2021-12-09] MEDS ORDERED: morphine INJ 10 MG/ML 1ML (SYR OR VIAL) IVP STA (16:43)
[2021-12-09] MEDS ORDERED: cefTRIAXone 1 GM PRE-MIX 50 ML IV STA (16:44)
[2021-12-09 16:45] LABS: CREATININE SERUM 0.73 MG/DL (0.60-1.30)
[2021-12-09 16:53] LABS: BAND NEUTROPHILS 3 %; BASOPHILS % (MANUAL) 0 %; EOSINOPHILS % (MANUAL) 2 %; LYMPHOCYTES % (MANUAL) 9 %; MONOCYTES % (MANUAL) 11 %; NEUTROPHILS % (MANUAL) 75 %; RBC MORPH NORMAL
[2021-12-09] MEDS ORDERED: TMSL.4C PO (16:58)
[2021-12-09] MEDS ORDERED: LEVO500T81 PO (16:58)
[2021-12-09] MEDS ORDERED: PROC25SU27 RC (16:58)
[2021-12-09] MEDS ORDERED: HYDR-34 PO (16:58)
[2021-12-09] MEDS ORDERED: KETO10TA PO (16:58)
[2021-12-09] MEDS ORDERED: NS IV 1000 ML 1,000 ML IV SCH (17:00)
[2021-12-09] MEDS ORDERED: TAMSULOSIN 0.4 MG (FLOMAX) CAP PO SCH (17:00)
[2021-12-09 18:06] VITALS: BP 111/58
[2021-12-11] MEDS ORDERED: MULT-1136 PO (09:18)
[2021-12-11] MEDS ORDERED: ACET-2650 PO (09:18)
== END 2021-12-09 18:06 | disposition home or self-care (01) ==
LOC: EDUNIT# 15:45 → ER 15:47
DX: N13.6 Pyonephrosis (principal); Z32.02 Encounter for pregnancy test, result negative
CPT/HCPCS: 36415; 74018; 74176; 80053; 81000; 82150; 83690; 84703; 85007; 85027; 87088

== ENCOUNTER → 2021-12-10 | Outpatient (CLI) | payer OTHER ==
[~2021-12-10] MED LIST changes: +KETO10TA PO; +LEVO500T81 PO; +MULT-1136 PO; +NITR-65 PO; +PHEN-640 PO; +TMSL.4C PO
--- NOTE | 2021-12-10 13:47 | Diagnostic Imaging Report ---
INDICATION: RT URETERAL SONE COMPARISON: 12/09/2021 FINDINGS: Single supine radiographic view of the abdomen was obtained and demonstrates nondistended loops of small bowel. There is no large collection of free peritoneal air. Mild air and stool are seen scattered throughout the colon. No unexpected extraosseous calcifications or radiopaque foreign bodies are seen. Bony structures show no gross acute abnormalities. IMPRESSION: 1. Nonobstructed small bowel gas pattern. Dictated by: Dictated on workstation # [id number]
== END ==
LOC: RAD 13:26
PROVIDERS: ATTEND Urology
DX: N20.1 Calculus of ureter (principal)
CPT/HCPCS: 74018

== ENCOUNTER 2021-12-11 08:31 | Outpatient (CLI) | payer OTHER ==
[~2021-12-11] VITALS: Ht 157.5 cm; Wt 100.0 kg
[~2021-12-11 08:31] MED LIST changes: -MULT-1136 PO; -NITR-65 PO; -PHEN-640 PO
[2021-12-11] MEDS ORDERED: ACET-2650 PO ×2 (09:18)
[2021-12-11] MEDS ORDERED: MULT-1136 PO ×2 (09:18)
== END 2021-12-11 09:56 | disposition home or self-care (01) ==
LOC: PREOP 08:31
PROVIDERS: ATTEND Urology
DX: Z01.818 Encounter for other preprocedural examination (principal)

== ENCOUNTER 2021-12-15 07:34 | Day surgery (SDC) | payer OTHER ==
[2021-12-15] VITALS (11 sets, daily range): BP systolic 121–160; BP diastolic 69–101
[~2021-12-15] VITALS: Ht 157.5 cm; Wt 100.0 kg
[~2021-12-15 07:34] MED LIST changes: +MULT-1136 PO
[2021-12-15] MEDS ORDERED: cefTRIAXone 1 GM PRE-MIX 50 ML IV ONE (08:00)
[2021-12-15] MEDS ORDERED: LACTATED RINGERS 1,000 ML IV PRN (08:00)
--- NOTE | 2021-12-15 08:15 | Diagnostic Imaging Report ---
Indication: Nephrolithiasis right-sided ESWL. Compared with radiograph 12/10/2021 No radiopaque urinary tract calculi can be identified. The bowel gas pattern unremarkable. No acute bony pathology. IMPRESSION: No visualized stone or bowel obstruction. Dictated by: Dictated on workstation # [id number]
--- NOTE | 2021-12-15 08:18 | Progress Note-Pre Operative ---
Pre-Operative Progress Note H&P Reviewed The H&P was reviewed, patient examined and no changes noted. Date Seen by Provider: December 15, 2021 Time Seen by Provider: 08:18 Date H&P Reviewed: December 15, 2021 Time H&P Reviewed: 08:18 Pre-Operative Diagnosis: RT DISTAL URETERAL STONE BREANA CHISHOLM MD December 15, 2021 08:18
[2021-12-15] MEDS ORDERED: ONDANSETRON 4 MG/2 ML (SDV) Z0FRAN IVP ONE (09:30)
[2021-12-15] MEDS ORDERED: FAMOTIDINE 20MG/2ML IV (PEPCID) IVP ONE (09:30)
[2021-12-15] MEDS ORDERED: FUROSEMIDE 40 MG/4 ML INJ (LASIX) ONE (10:50)
[2021-12-15] MEDS ORDERED: MIDAZOLAM 2 MG/2 ML (VERSED) VIAL ONE (10:50)
[2021-12-15] MEDS ORDERED: LIDOCAINE PF 2% 5 ML (XYLOCAINE) VIAL ONE (10:50)
[2021-12-15] MEDS ORDERED: fentaNYL INJ 100 MCG/2 ML AMP ONE (10:50)
[2021-12-15] MEDS ORDERED: ONDANSETRON 4 MG/2 ML (SDV) Z0FRAN ONE (10:50)
[2021-12-15] MEDS ORDERED: KETOROLAC 30 MG/ML VIAL ONE (10:50)
[2021-12-15] MEDS ORDERED: proPOfol 200 MG/20 ML (DIPRIVAN) VIAL IV ONE (10:50)
--- NOTE | 2021-12-15 11:34 | Progress Note-Post Operative ---
Post-Operative Progess Note Surgeon (s)/B[employer] [place]ney Supervisor (s) Surgeon BREANA CHISHOLM MD [place] Supervisor: NONE Pre-Operative Diagnosis RT DISTAL URETERAL STONE Post-Operative Diagnosis SAME Procedure & Operative Findings Date of Procedure 12/15/21 Procedure Performed/Findings CYSTOSCOPY, RT URETEROSCOPY Anesthesia Type GENERAL Estimated Blood Loss Estimated blood loss (mL): NONE Specimens/Packing Specimens Removed NONE Packing: NONE BREANA CHISHOLM MD December 15, 2021 11:34
--- NOTE | 2021-12-15 11:36 | Discharge Inst-Urology ---
Discharge Inst-Urology Reconcile Patient Problems Problems Reviewed?: Yes Final Diagnosis RT DISTAL URETERAL STONE Patient Instructions/Follow Up Plan/Assessment/Instructions Please make appointment to been seen in office in 2 weeks. May resume ASA in 48 hours if no bleeding Increase oral fluids for 48 hours and then as needed. Diet and Activity as tolerated. If questions or concerns contact your physician Or seek help at emergency department. BREANA CHISHOLM MD December 15, 2021 11:36
[2021-12-15] MEDS ORDERED: ROCURONIUM 50 MG/5 ML (ZEMURON) VIAL IV ONE (12:00)
[2021-12-15] MEDS ORDERED: PHENYLEPHRINE 100 MCG/ML 10 ML (ANESTHESIA) SYR ONE (12:07)
[2021-12-15] MEDS ORDERED: NEOSTIGMINE 3 MG/3 ML VIAL ONE (12:21)
[2021-12-15] MEDS ORDERED: GLYCOPYRROLATE 0.2 MG/ML (ROBINUL) 2 ML VIAL ONE (12:21)
[2021-12-15] MEDS ORDERED: SEVOFLURANE (ULTANE) 15 ML INHAL SOLN ONE (12:27)
[2021-12-15] MEDS ORDERED: IOHEXOL 300 MG/ML 30 ML (OMNIPAQUE 300) VIAL INJ ONE (12:30)
[2021-12-15] MEDS ORDERED: HYDROmorphone 2 MG/ML VIAL (DILAUDID) IV ONE (12:45)
[2021-12-15] MEDS ORDERED: PROMETHAZINE INJ 25 MG/ML (PHENERGAN) AMP IVP ONE (12:45)
[2021-12-15] MEDS ORDERED: morphine INJ 10 MG/ML 1ML (SYR OR VIAL) IVP ONE (12:45)
[2021-12-15] MEDS ORDERED: ONDANSETRON 4 MG/2 ML (SDV) Z0FRAN IVP PRN (12:45)
--- NOTE | 2021-12-15 13:28 | Anesthesia-General Post-Op ---
General Patient Condition Mental Status/LOC: Same as Preop Cardiovascular: Satisfactory Nausea/Vomiting: Absent Respiratory: Satisfactory Pain: Controlled Complications: Absent Post Op Complications Complications None Follow Up Care/Instructions Patient Instructions None needed. Anesthesia/Patient Condition Patient Condition Patient is doing well, no complaints, stable vital signs, no apparent adverse anesthesia problems. No complications reported per nursing. SIMA GIL CRNA December 15, 2021 13:28
[2021-12-15] MEDS ORDERED: TMSL.4C PO ×2 (13:34)
[2021-12-15] MEDS ORDERED: KETO10TA PO ×2 (13:34)
[2021-12-15] MEDS ORDERED: PHEN-640 PO ×2 (13:34)
[2021-12-15] MEDS ORDERED: NITR-65 PO ×2 (13:34)
--- NOTE | 2021-12-15 16:18 | OPERATIVE REPORT ---
DATE OF SERVICE: 12/15/2021 PREOPERATIVE DIAGNOSIS: Right distal ureteral stone. POSTOPERATIVE DIAGNOSIS: Right distal ureteral stone. OPERATION PERFORMED: Right ureteroscopy with stone lithotripsy and retrograde urogram. SURGEON: Raymundo Chisholm MD ANESTHESIA: General. COMPLICATIONS: None. DESCRIPTION OF PROCEDURE: Under satisfactory general anesthesia, the patient in lithotomy position, genitalia were prepped and draped in the usual sterile fashion. Cystoscope was introduced in the bladder and the bladder was inspected. It was normal except for sluggish efflux on the right side. Using the foroblique lens, I dilated the right ureteral orifice intramural portion to accommodate a 6.9 [place] semi-rigid ureteroscope, visualized the stone and broke it up with lithoclast. There was no further stone, I injected contrast to confirm the integrity of the ureter. No filling defect and complete emptying and fast emptying of the ureter on withdrawing the ureteroscope. I removed the ureteroscope, reinserted the cystoscope to empty the bladder. The patient tolerated the procedure and anesthesia well and was sent to recovery room in stable condition after receiving 40 mg of Lasix and 30 mg of Toradol IV. CC: Dr. Gibson - requested, unable to deliver. Job ID: [id number] DocumentID: [id number] Dictated Date: 12/15/2021 12:43:20 Telehealth Nurse Date: 12/15/2021 16:18:07 Dictated By: RAYMUNDO CHISHOLM MD
== END 2021-12-15 14:25 | disposition home or self-care (01) ==
LOC: SDC 07:34
PROVIDERS: ATTEND Urology
DX: N20.1 Calculus of ureter (principal); N39.3 Stress incontinence (female) (male); N32.81 Overactive bladder; M19.90 Unspecified osteoarthritis, unspecified site
CPT/HCPCS: 74018; 76000; 84703; 87081

== ENCOUNTER → 2022-07-08 | Outpatient (CLI) | payer OTHER ==
[~2022-07-08] MED LIST changes: +LEVO-55 PO; -LEVO500T81 PO; +NITR-65 PO; +PHEN-640 PO
--- NOTE | 2022-07-08 12:02 | Diagnostic Imaging Report ---
INDICATION: Routine screening. COMPARISON is made prior mammograms from 07/09/2021 and 07/10/2020. 2-D and 3-D bilateral screening mammography was performed with CAD Both breasts are heterogeneously dense, limiting the sensitivity of mammography. The parenchymal pattern is stable. No mass or malignant-appearing microcalcifications are seen. Axillae are unremarkable. IMPRESSION: BI-RADS Category 1 No mammographic features suspicious for malignancy are identified. ACR BI-RADS Category 1: Negative. Result letter will be mailed to the patient. Note: At least 10% of breast cancer is not imaged by mammography. Dictated by: Dictated on workstation # [id number]
== END ==
LOC: RAD 06:46
PROVIDERS: ATTEND Family Medicine
DX: Z12.31 Encounter for screening mammogram for malignant neoplasm of breast (principal)
CPT/HCPCS: 77063; 77067

== ENCOUNTER → 2022-11-22 | Outpatient (CLI) | payer OTHER ==
[2022-11-22 07:51] LABS: BASOPHILS # (AUTO) 0.1 10^3/uL (0.0-0.1); BASOPHILS % (AUTO) 1 % (0-10); EOSINOPHILS # (AUTO) 0.1 10^3/uL (0.0-0.3); EOSINOPHILS % (AUTO) 1 % (0-10); HEMATOCRIT 40 % (35-52); HEMOGLOBIN 12.9 g/dL (11.5-16.0); LYMPHOCYTES # (AUTO) 1.8 10^3/uL (1.0-4.0); LYMPHOCYTES % (AUTO) 17 % (12-44); MEAN CORPUSCULAR HEMOGLOBIN 29 pg (25-34); MEAN CORPUSCULAR HGB CONC 32 g/dL (32-36); MEAN CORPUSCULAR VOLUME 89 fL (80-99); MEAN PLATELET VOLUME 9.1 fL (9.0-12.2); MONOCYTES # (AUTO) 0.6 10^3/uL (0.0-1.0); MONOCYTES % (AUTO) 5 % (0-12); NEUTROPHILS # (AUTO) 8.4 10^3/uL (1.8-7.8); NEUTROPHILS % (AUTO) 76 % (42-75); PLATELET COUNT 324 10^3/uL (130-400); WHITE BLOOD COUNT 11.1 10^3/uL (4.3-11.0)
[2022-11-22 08:05] LABS: ALBUMIN 4.4 GM/DL (3.2-4.5)
[2022-11-22 08:06] LABS: CALCIUM 9.4 MG/DL (8.5-10.1)
[2022-11-22 08:08] LABS: TOTAL PROTEIN 7.5 GM/DL (6.4-8.2)
[2022-11-22 08:09] LABS: BILIRUBIN,TOTAL 0.4 MG/DL (0.1-1.0)
[2022-11-22 08:11] LABS: CREATININE SERUM 0.69 MG/DL (0.60-1.30)
[2022-11-22 08:35] LABS: FREE T4 (FREE THYROXINE) 0.96 NG/DL (0.70-1.48)
== END ==
LOC: LAB 07:37
PROVIDERS: ATTEND Family Medicine
DX: Z00.00 Encounter for general adult medical examination without abnormal findings (principal); I10 Essential (primary) hypertension; E66.09 Other obesity due to excess calories
CPT/HCPCS: 36415; 80053; 80061; 83036; 84439; 84443; 85025